=== PATIENT | male | born 1955 | race Caucasian/White ===

== ENCOUNTER 2016-09-09 17:05 | Inpatient (IN) | payer BC ==
[2016-09-09] MEDS ORDERED: Sodium Chloride 0.9% 10 ML Syringe FLUSH PRN (17:31)
[2016-09-09] MEDS ORDERED: Ondansetron 4 MG/2 ML SDV IVPUSH ONE (17:48)
[2016-09-09] MEDS ORDERED: Ondansetron 8 MG in Sodium Chloride 0.9% 50 ML IV ONE (17:58)
[2016-09-09 17:59] LABS: CHLORIDE,CL 98 mEq/L (98-106); SODIUM,NA 137 mEq/L (136-145)
[2016-09-09] MEDS ORDERED: Acetaminophen 325 MG Tab PO ONE (18:23)
--- NOTE | 2016-09-09 18:55 | EDM.PDOC ---
ED HPI GENERAL MEDICAL PROBLEM - General Chief Complaint: General Stated Complaint: nausea,vomiting,weaknes,fever Time Seen by Provider: 09/09/16 17:20 Source of Information: Reports: Patient History Limitations: Reports: No limitations - History of Present Illness INITIAL COMMENTS - FREE TEXT/NARRATIVE: my General medical History and physical: History of present illness: [Patient is brought to the emergency room by his . He has complained of weakness, dizziness, lightheadedness, nausea and vomiting since 7:00 this morning. He had one dose of Zofran at 11 AM which helped his nausea for a short time. His appetite is decreased and he began to feel warm to the touch while he was at home. His temperature was 103.2 upon presentation to the ER. He is currently undergoing chemotherapy for lung cancer with brain metastasis with Dr. Long at [facility]. His last treatment was 10 days ago. reports that he has had cough and cold symptoms for the past 10 days. He denies headache sore throat and earaches. He has no chest pain, shortness of breath, or difficulty breathing. No abdominal pain. Nausea and vomiting began today. Denies burning with urination, hematuria, urinary frequency and urgency. No change to bowels. Denies swelling to his feet or lower legs. Overall feels weak and denies falls and injury. No unilateral weakness.] Review of Systems: As per history of present illness and below otherwise all systems reviewed and negative. Past medical history: As per history of present illness and as reviewed below otherwise noncontributory. Surgical history: As per history of present illness and is reviewed below other rincon noncontributory. Social history: No reported history of drug or alcohol abuse. Family history: As per history of present illness and is reviewed below otherwise noncontributory. Physical exam: HEENT: Atraumatic, normocephalic. Oral mucous membranes are pink and moist. Wears glasses. neck supple, nontender, no lymphadenopathy. Lungs: Clear to auscultation, breath sounds equal bilaterally. No wheezing crackles or rales. Heart: S1-S2, regular rate and rhythm. negative for clicks, rubs, or JVD. Abdomen: Overweight, Soft, nondistended. No masses guarding or rebound. Mildly tender over the suprapubic area. No CVA tenderness. Pelvis: Stable, nontender. Genitourinary: Deferred. Rectal: Deferred. Extremities: Ambulatory without difficulty. No swelling or cyanosis to feet or lower legs. negative for cords or calf pain. Neurovascular unremarkable. Neuro: Awake, alert, oriented. Motor and sensory unremarkable throughout. Exam nonfocal. Movements of upper and lower extremities is symmetrical. Diagnostics: [CBC, CMP, UA, urine culture, blood cultures, CRP, lactic acid] Therapeutics: [Tylenol 650 mg by mouth, normal saline 500 miles per hour, Zofran 8mg IV, Levaquin 500 milligrams IV, ceftriaxone 1 g IV] Impression: [Urosepsis] Plan: [White blood cell count 19.5, BUN 11, creatinine 0.8, glucose 168, CRP 8.8, lactic acid 2.3. Urinalysis shows specific gravity 1.028, ketones 15, trace amount of blood, nitrate positive, greater than 100 white blood cells. Blood and urine cultures are pending. Vitals are reviewed in the chart. Contacted Dr. 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 and review this case with him. He is happy to accept the patient in transfer but states that unless the patient would like to be evaluated and treated in [place], treatment at [facility] is certainly reasonable. This is reviewed with patient and his . They would like to remain in [place] at this time for hospitalization. All their questions are answered and concerns are addressed. This note is to serve as hospital H&P. 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: Other medication(s) Lower Back Pain Score (Numeric/FACES): 5 - Related Data Allergies Allergy/AdvReac Type Severity Reaction Status Date / Time No Known Allergies Allergy Verified 09/09/16 17:13 Home Meds: Home Meds Simvastatin [Simvastatin] 40 mg PO DAILY 03/04/15 [History] metFORMIN [Glucophage] 500 mg PO BID 04/07/15 [History] Cholecalciferol (Vitamin D3) [Vitamin D3] 1,000 unit PO DAILY 06/10/16 [History] Ondansetron HCl [Zofran] 4 mg PO Q8H PRN 06/10/16 [History] Prochlorperazine [Compazine] 10 mg PO Q6H PRN 06/10/16 [History] Tamsulosin HCl [Flomax] 0.4 mg PO DAILY 06/10/16 [History] Aspirin [Halfprin] 81 mg PO DAILY 06/21/16 [History] Multivitamin [Multivitamins] 1 tab PO DAILY 06/21/16 [History] Turkey-3/DHA/Epa/Fish Oil [Fish Oil 1,000 mg Softgel] 2,000 unit PO DAILY [History] guaiFENesin [Mucinex] 600 mg PO BID 06/21/16 [History] Cranberry 500 mg PO DAILY 06/24/16 [History] Diphenoxylate HCl/Atropine [Lomotil] 1 tab PO Q6H PRN 06/24/16 [History] Famotidine [Pepcid] 20 mg PO DAILY 06/24/16 [History] Polyethylene Glycol 3350 [MiraLAX] 17 gm PO DAILY PRN 06/24/16 [History] Benzonatate [Tessalon Perles] 200 mg PO TID PRN 09/09/16 [History] Past Medical History Other HEENT History: wears glasses Cardiovascular History: Reports: High cholesterol, Hypertension Endocrine/Metabolic History: Reports: Diabetes, type II Oncologic (Cancer) History: Reports: Other (see below) Other Oncologic History: RECTAL - Past Surgical History Other HEENT Surgeries/Procedures: eye lid surgery Other GI Surgeries/Procedures: rectal cancer with polypectomy Social & Family History - Family History Family Medical History: Noncontributory - Tobacco Use Smoking Status *Q: Never Smoker Second Hand Smoke Exposure: No - Caffeine Use Caffeine Use: Reports: Coffee - Recreational Drug Use Recreational Drug Use: No ED ROS GENERAL - Review of Systems Review Of Systems: ROS reveals no pertinent complaints other than HPI. ED EXAM, GENERAL - Physical Exam Exam: See Below Course - Vital Signs Last Recorded V/S: Last Vital Signs Temp 97.8 F 09/10/16 12:00 Pulse 137 H 09/10/16 12:00 Resp 18 09/10/16 12:00 BP 113/77 09/10/16 07:44 Pulse Ox 95 09/10/16 12:00 - Orders/Labs/Meds Orders: Active Orders 24 hr Category Date Time Status CXR [Chest 2V] [CR] Stat Exams 09/09/16 17:44 Taken CULTURE BLOOD [BC] Stat Lab 09/09/16 17:35 Received CULTURE BLOOD [BC] Stat Lab 09/09/16 17:40 Received CULTURE URINE [RM] Stat Lab 09/09/16 17:45 Results Levofloxacin/Dextrose 5%-Water [Levaquin in D5W 500 MG/ Med 09/09/16 19:15 Active 100 ML] 500 mg Premix Bag 1 bag IV Q24H cefTRIAXone [Rocephin] Med 09/09/16 19:15 Active 1 gm IV Q24H Blood Culture x2 Reflex Set [OM.PC] Stat Oth 09/09/16 17:31 Ordered Saline Lock Insert [OM.PC] Stat Oth 09/09/16 17:30 Ordered Medication Orders Acetaminophen (Tylenol) 650 mg PO Q4H PRN PRN Reason: Pain (Mild 1-3)/fever Last Admin: 09/09/16 22:01 Dose: 650 mg Hydrocodone Bitart/Acetaminophen ([place] 325-5 Mg) 1 tab PO Q4H PRN PRN Reason: Pain (moderate 4-6) Ceftriaxone Sodium (Rocephin) 1 gm IV Q24H [facility] Last Admin: 09/09/16 19:13 Dose: 1 gm Enoxaparin Sodium (Lovenox) 40 mg SUBCUT Q24H [facility] Last Admin: 09/09/16 20:25 Dose: 40 mg Famotidine (Pepcid) 20 mg PO DAILY [facility] Last Admin: 09/10/16 07:31 Dose: 20 mg Admin: 09/09/16 20:23 Dose: 20 mg Levofloxacin/Dextrose 500 mg/ (Premix) 100 mls @ 100 mls/hr IV Q24H [facility] Last Admin: 09/09/16 19:17 Dose: 100 mls/hr Sodium Chloride (Normal Saline) 1,000 mls @ 125 mls/hr IV ASDIRECTED [facility] Last Admin: 09/10/16 05:59 Dose: 125 mls/hr Infusion: 09/09/16 22:01 Dose: 125 mls/hr Admin: 09/09/16 20:25 Dose: 125 mls/hr Ibuprofen (Motrin) 600 mg PO Q6H PRN PRN Reason: Fever Last Admin: 09/09/16 20:23 Dose: 600 mg Metformin HCl (Glucophage) 500 mg PO BID [facility] Last Admin: 09/10/16 07:30 Dose: 500 mg Admin: 09/09/16 20:23 Dose: 500 mg Ondansetron HCl (Zofran) 4 mg IV Q6H PRN PRN Reason: Nausea/Vomiting Tamsulosin HCl (Flomax) 0.4 mg PO DAILY NICOLA Last Admin: 09/10/16 07:29 Dose: 0.4 mg Admin: 09/09/16 20:23 Dose: 0.4 mg Zolpidem Tartrate (Ambien) 5 mg PO BEDTIME PRN PRN Reason: Sleep Labs: Laboratory Tests 09/09/16 09/09/16 09/09/16 Range/Units 17:35 17:35 17:40 WBC 19.5 H (5.0-10.0) 10^3/uL RBC 5.21 (4.50-6.00) 10^6/uL Hgb 14.9 (14.0-18.0) g/dL Hct 44.4 (40.0-54.0) % MCV 85.2 (82.0-94.0) fL MCH 28.6 (27.0-32.0) pg MCHC 33.6 (33.0-38.0) g/dL RDW Coeff of Maikel 15.5 H (11.0-15.0) % Plt Count 132 L (150-400) 10^3/uL Add Manual Diff Yes Neutrophils % (Manual) 79 (35-85) % Band Neutrophils % 7 H (0-5) % Lymphocytes % (Manual) 5 L (21-55) % Monocytes % (Manual) 9 (2-12) % Absolute Neutrophils 16.77 H (1.80-7.00) 10^3/uL Lymphocytes # (Manual) 0.98 L (1.00-4.80) 10^3/uL Monocytes # (Manual) 1.76 H (0.00-0.80) 10^3/uL Sodium 137 (136-145) mEq/L Potassium 4.0 (3.5-5.0) mEq/L Chloride 98 (98-106) mEq/L Carbon Dioxide 25 (21-32) mmol/L BUN 11 (7-18) mg/dL Creatinine 0.8 (0.7-1.3) mg/dL Est Cr Clr Drug Dosing 108.20 mL/min Estimated GFR (MDRD) > 60 (>=60) mL/min Glucose 168 H D (75-99) mg/dL Lactic Acid 2.3 H (0.4-2.0) mmol/L Calcium 8.7 (8.4-10.1) mg/dL Total Bilirubin 1.3 H (0.0-1.0) mg/dL AST 25 (15-37) U/L ALT 17 (12-78) U/L Alkaline Phosphatase 89 (46-116) U/L C-Reactive Protein (0.2-0.8) mg/dL Total Protein 7.3 (6.4-8.2) g/dL Albumin 3.6 (3.4-5.0) g/dL Urine Color (YELLOW) Urine Appearance (CLEAR) Urine pH (4.5-8.0) Ur Specific [place] (1.003-1.020) Urine Protein (NEGATIVE) mg/dL Urine Glucose (UA) (NEGATIVE) mg/dL Urine Ketones (NEGATIVE) mg/dL Urine Occult Blood (NEGATIVE) Urine Nitrite (NEGATIVE) Urine Bilirubin (NEGATIVE) Urine Urobilinogen (0.2-1.0) EU/dL Ur Leukocyte Esterase (NEGATIVE) Urine RBC (0-5) /HPF Urine WBC (0-5) /HPF Urine WBC Clumps (NOT SEEN) /HPF Ur Epithelial Cells (NOT SEEN) /HPF Urine Bacteria (NOT SEEN) /HPF Urine Mucus (NOT SEEN) /HPF 09/09/16 09/09/16 Range/Units 17:40 17:45 WBC (5.0-10.0) 10^3/uL RBC (4.50-6.00) 10^6/uL Hgb (14.0-18.0) g/dL Hct (40.0-54.0) % MCV (82.0-94.0) fL MCH (27.0-32.0) pg MCHC (33.0-38.0) g/dL RDW Coeff of Maikel (11.0-15.0) % Plt Count (150-400) 10^3/uL Add Manual Diff Neutrophils % (Manual) (35-85) % Band Neutrophils % (0-5) % Lymphocytes % (Manual) (21-55) % Monocytes % (Manual) (2-12) % Absolute Neutrophils (1.80-7.00) 10^3/uL Lymphocytes # (Manual) (1.00-4.80) 10^3/uL Monocytes # (Manual) (0.00-0.80) 10^3/uL Sodium (136-145) mEq/L Potassium (3.5-5.0) mEq/L Chloride (98-106) mEq/L Carbon Dioxide (21-32) mmol/L BUN (7-18) mg/dL Creatinine (0.7-1.3) mg/dL Est Cr Clr Drug Dosing mL/min Estimated GFR (MDRD) (>=60) mL/min Glucose (75-99) mg/dL Lactic Acid (0.4-2.0) mmol/L Calcium (8.4-10.1) mg/dL Total Bilirubin (0.0-1.0) mg/dL AST (15-37) U/L ALT (12-78) U/L Alkaline Phosphatase (46-116) U/L C-Reactive Protein 8.8 H (0.2-0.8) mg/dL Total Protein (6.4-8.2) g/dL Albumin (3.4-5.0) g/dL Urine Color Yellow (YELLOW) Urine Appearance Slightly cloudy (CLEAR) Urine pH 6.0 (4.5-8.0) Ur Specific [place] 1.028 H (1.003-1.020) Urine Protein >=300 H (NEGATIVE) mg/dL Urine Glucose (UA) Negative (NEGATIVE) mg/dL Urine Ketones 15 H (NEGATIVE) mg/dL Urine Occult Blood Trace-intact H (NEGATIVE) Urine Nitrite Positive H (NEGATIVE) Urine Bilirubin Small H (NEGATIVE) Urine Urobilinogen 2.0 H (0.2-1.0) EU/dL Ur Leukocyte Esterase Small H (NEGATIVE) Urine RBC Not seen (0-5) /HPF Urine WBC >100 H (0-5) /HPF Urine WBC Clumps Few H (NOT SEEN) /HPF Ur Epithelial Cells Few H (NOT SEEN) /HPF Urine Bacteria Many H (NOT SEEN) /HPF Urine Mucus Few H (NOT SEEN) /HPF Meds: Medications Generic Name Dose Route Start Last Admin Trade Name Freq PRN Reason Stop Dose Admin Acetaminophen 650 mg 09/09/16 19:25 09/09/16 22:01 Tylenol PO 650 mg Q4H PRN Administration Pain (Mild 1-3)/fever Hydrocodone Bitart/Acetaminophen 1 tab 09/09/16 19:25 [place] 325-5 Mg PO Q4H PRN Pain (moderate 4-6) Ceftriaxone Sodium 1 gm 09/09/16 19:15 09/09/16 19:13 Rocephin IV 1 gm Q24H NICOLA Administration Enoxaparin Sodium 40 mg 09/09/16 19:30 09/09/16 20:25 Lovenox SUBCUT 40 mg Q24H NICOLA Administration Famotidine 20 mg 09/09/16 19:30 09/10/16 07:31 Pepcid PO 20 mg DAILY NICOLA Administration Levofloxacin/Dextrose 500 mg/ 100 mls @ 100 mls/hr 09/09/16 19:15 09/09/16 19 :17 Premix IV 100 mls/hr Q24H NICOLA Administration Sodium Chloride 1,000 mls @ 125 mls/hr 09/09/16 20:00 09/10/16 05:59 Normal Saline IV 125 mls/hr ASDIRECTED NICOLA Administration Ibuprofen 600 mg 09/09/16 19:51 09/09/16 20:23 Motrin PO 600 mg Q6H PRN Administration Fever Metformin HCl 500 mg 09/09/16 20:00 09/10/16 07:30 Glucophage PO 500 mg BID NICOLA Administration Ondansetron HCl 4 mg 09/09/16 19:25 Zofran IV Q6H PRN Nausea/Vomiting Tamsulosin HCl 0.4 mg 09/09/16 19:30 09/10/16 07:29 Flomax PO 0.4 mg DAILY NICOLA Administration Zolpidem Tartrate 5 mg 09/09/16 19:25 Ambien PO BEDTIME PRN Sleep Discontinued Medications Generic Name Dose Route Start Last Admin Trade Name Freq PRN Reason Stop Dose Admin Acetaminophen 650 mg 09/09/16 18:23 09/09/16 18:27 Tylenol PO 09/09/16 18:24 650 mg NOW ONE Administration Ondansetron HCl 8 mg/ Sodium 54 mls @ 100 mls/hr 09/09/16 17:58 09/09/16 18: 17 Chloride IV 09/09/16 18:30 100 mls/hr ASDIRECTED ONE Administration Sodium Chloride 1,000 mls @ 500 mls/hr 09/09/16 19:00 09/09/16 19:00 Normal Saline IV 09/09/16 21:00 500 mls/hr STAT NICOLA Administration Sodium Chloride 10 ml 09/09/16 17:31 Saline Flush FLUSH ASDIRECTED PRN Keep Vein Open Departure - Departure Time of Disposition: 19:20 Disposition: Admitted As Inpatient 65 Condition: good Clinical Impression: UTI (urinary tract infection) Qualifiers: Urinary tract infection type: site unspecified Hematuria presence: without hematuria Qualified Code(s): N39.0 - Urinary tract infection, site not specified - My Orders Last 24 Hours: My Active Orders 09/09/16 17:30 Saline Lock Insert [OM.PC] Stat 09/09/16 17:31 Blood Culture x2 Reflex Set [OM.PC] Stat 09/09/16 17:35 CULTURE BLOOD [BC] Stat 09/09/16 17:40 CULTURE BLOOD [BC] Stat 09/09/16 17:44 CXR [Chest 2V] [CR] Stat 09/09/16 17:45 CULTURE URINE [RM] Stat 09/09/16 19:15 Levofloxacin/Dextrose 5%-Water [Levaquin in D5W 500 MG/100 ML] 500 mg Premix Bag 1 bag IV Q24H cefTRIAXone [Rocephin] 1 gm IV Q24H - Assessment/Plan Last 24 Hours: My Active Orders 09/09/16 17:30 Saline Lock Insert [OM.PC] Stat 09/09/16 17:31 Blood Culture x2 Reflex Set [OM.PC] Stat 09/09/16 17:35 CULTURE BLOOD [BC] Stat 09/09/16 17:40 CULTURE BLOOD [BC] Stat 09/09/16 17:44 CXR [Chest 2V] [CR] Stat 09/09/16 17:45 CULTURE URINE [RM] Stat 09/09/16 19:15 Levofloxacin/Dextrose 5%-Water [Levaquin in D5W 500 MG/100 ML] 500 mg Premix Bag 1 bag IV Q24H cefTRIAXone [Rocephin] 1 gm IV Q24H
[2016-09-09] MEDS ORDERED: Sodium Chloride 0.9% 1,000 ML IV SCH (19:00)
[2016-09-09] MEDS: cefTRIAXone 1 GM Vial IV SCH (19:13)
[2016-09-09] MEDS: Levofloxacin/Dextrose 5%-Water 500 MG in Premix Bag 1 BAG IV SCH (19:17)
[2016-09-09] MEDS ORDERED: Ondansetron 4 MG/2 ML SDV IV PRN (19:25)
[2016-09-09] MEDS ORDERED: Acetaminophen/HYDROcodone 325-5 MG Tab PO PRN (19:25)
[2016-09-09] MEDS ORDERED: Zolpidem 5 MG Tab PO PRN (19:25)
[2016-09-09] MEDS ORDERED: Acetaminophen 325 MG Tab PO PRN (19:25)
[2016-09-09] MEDS ORDERED: Ibuprofen 200 MG Tab PO PRN (19:51)
[2016-09-09] MEDS: metFORMIN 500 MG Tab PO SCH (20:23)
[2016-09-09] MEDS: Tamsulosin 0.4 MG Cap.ER PO SCH (20:23)
[2016-09-09] MEDS: Famotidine 20 MG Tab PO SCH (20:23)
[2016-09-09] MEDS: Enoxaparin 40 MG/0.4 ML Syringe SUBCUT SCH (20:25)
[2016-09-09] MEDS: Sodium Chloride 0.9% 1,000 ML IV SCH (20:25)
[2016-09-10] MEDS: Sodium Chloride 0.9% 1,000 ML IV SCH ×3 (05:59→20:01)
[2016-09-10] MEDS: Tamsulosin 0.4 MG Cap.ER PO SCH (07:29)
[2016-09-10] MEDS: metFORMIN 500 MG Tab PO SCH ×2 (07:30→20:00)
[2016-09-10] MEDS: Famotidine 20 MG Tab PO SCH (07:31)
[2016-09-10 07:55] LABS: CHLORIDE,CL 102 mEq/L (98-106); SODIUM,NA 139 mEq/L (136-145)
--- NOTE | 2016-09-10 17:33 | PCM.PN ---
- General Info Date of Service: 09/10/16 Admission Dx/Problem (Free Text): urosepsis Subjective Update: Patient was admitted through the emergency room last night for urosepsis. Nursing staff have no new complaints or concerns for patient. Patient feels remarkably better than he did 24 hours ago. He has remained afebrile since about 11 PM last night. His appetite has been good and he is urinating well. His urine still looks concentrated per his report. Patient has no concerns. Functional Status: Reports: tolerating diet, urinating - Review of Systems General: Denies: Fever, Fatigue, Malaise, Chills Pulmonary: Reports: no symptoms Cardiovascular: Reports: No Symptoms Gastrointestinal: Reports: No symptoms Genitourinary: Reports: frequency. Denies: dysuria, burning, pain, urgency, hematuria, flank pain Musculoskeletal: Reports: no symptoms Skin: Reports: no symptoms Neurological: Reports: No Symptoms Psychiatric: Reports: no symptoms - Patient Data Vitals - most recent: Last Vital Signs Temp 98 F 09/10/16 16:00 Pulse 79 09/10/16 16:00 Resp 20 09/10/16 16:00 BP 137/89 09/10/16 16:00 Pulse Ox 94 L 09/10/16 16:00 Weight - most recent: 265 lb 4.8 oz I&O - last 24 hours: Intake & Output 09/10/16 09/10/16 09/10/16 06:59 14:59 22:59 Intake Total 1320 Balance 1320 Lab Results last 24 hrs: Laboratory Results - last 24 hr 09/10/16 09/10/16 09/10/16 Range/Units 07:15 07:15 07:15 WBC 17.6 H (5.0-10.0) 10^3/uL RBC 4.52 (4.50-6.00) 10^6/uL Hgb 13.1 L (14.0-18.0) g/dL Hct 39.3 L (40.0-54.0) % MCV 86.9 (82.0-94.0) fL MCH 29.0 (27.0-32.0) pg MCHC 33.3 (33.0-38.0) g/dL RDW Coeff of Maikel 15.5 H (11.0-15.0) % Plt Count 116 L (150-400) 10^3/uL MPV 9.1 fL Sodium 139 (136-145) mEq/L Potassium 3.8 (3.5-5.0) mEq/L Chloride 102 (98-106) mEq/L Carbon Dioxide 27 (21-32) mmol/L BUN 14 (7-18) mg/dL Creatinine 0.7 (0.7-1.3) mg/dL Est Cr Clr Drug Dosing 123.65 mL/min Estimated GFR (MDRD) > 60 (>=60) mL/min Glucose 101 H D (75-99) mg/dL POC Glucose (75-105) mg/dl Lactic Acid 1.2 (0.4-2.0) mmol/L Calcium 8.2 L (8.4-10.1) mg/dL C-Reactive Protein 19.8 H (0.2-0.8) mg/dL 09/10/16 Range/Units 07:23 WBC (5.0-10.0) 10^3/uL RBC (4.50-6.00) 10^6/uL Hgb (14.0-18.0) g/dL Hct (40.0-54.0) % MCV (82.0-94.0) fL MCH (27.0-32.0) pg MCHC (33.0-38.0) g/dL RDW Coeff of Maikel (11.0-15.0) % Plt Count (150-400) 10^3/uL MPV fL Sodium (136-145) mEq/L Potassium (3.5-5.0) mEq/L Chloride (98-106) mEq/L Carbon Dioxide (21-32) mmol/L BUN (7-18) mg/dL Creatinine (0.7-1.3) mg/dL Est Cr Clr Drug Dosing mL/min Estimated GFR (MDRD) (>=60) mL/min Glucose (75-99) mg/dL POC Glucose 100 (75-105) mg/dl Lactic Acid (0.4-2.0) mmol/L Calcium (8.4-10.1) mg/dL C-Reactive Protein (0.2-0.8) mg/dL Med Orders - Current: Current Medications Acetaminophen (Tylenol) 650 mg PO Q4H PRN PRN Reason: Pain (Mild 1-3)/fever Last Admin: 09/09/16 22:01 Dose: 650 mg Hydrocodone Bitart/Acetaminophen ([place] 325-5 Mg) 1 tab PO Q4H PRN PRN Reason: Pain (moderate 4-6) Ceftriaxone Sodium (Rocephin) 1 gm IV Q24H [facility] Last Admin: 09/09/16 19:13 Dose: 1 gm Enoxaparin Sodium (Lovenox) 40 mg SUBCUT Q24H [facility] Last Admin: 09/09/16 20:25 Dose: 40 mg Famotidine (Pepcid) 20 mg PO DAILY [facility] Last Admin: 09/10/16 07:31 Dose: 20 mg Levofloxacin/Dextrose 500 mg/ (Premix) 100 mls @ 100 mls/hr IV Q24H [facility] Last Admin: 09/09/16 19:17 Dose: 100 mls/hr Sodium Chloride (Normal Saline) 1,000 mls @ 125 mls/hr IV ASDIRECTED [facility] Last Admin: 09/10/16 14:22 Dose: 125 mls/hr Ibuprofen (Motrin) 600 mg PO Q6H PRN PRN Reason: Fever Last Admin: 09/09/16 20:23 Dose: 600 mg Metformin HCl (Glucophage) 500 mg PO BID [facility] Last Admin: 09/10/16 07:30 Dose: 500 mg Ondansetron HCl (Zofran) 4 mg IV Q6H PRN PRN Reason: Nausea/Vomiting Tamsulosin HCl (Flomax) 0.4 mg PO DAILY [facility] Last Admin: 09/10/16 07:29 Dose: 0.4 mg Zolpidem Tartrate (Ambien) 5 mg PO BEDTIME PRN PRN Reason: Sleep Discontinued Medications Acetaminophen (Tylenol) 650 mg PO NOW ONE Stop: 09/09/16 18:24 Last Admin: 09/09/16 18:27 Dose: 650 mg Ondansetron HCl 8 mg/ Sodium (Chloride) 54 mls @ 100 mls/hr IV ASDIRECTED ONE Stop: 09/09/16 18:30 Last Admin: 09/09/16 18:17 Dose: 100 mls/hr Sodium Chloride (Normal Saline) 1,000 mls @ 500 mls/hr IV STAT [facility] Stop: 09/09/16 21:00 Last Admin: 09/09/16 19:00 Dose: 500 mls/hr Sodium Chloride (Saline Flush) 10 ml FLUSH ASDIRECTED PRN PRN Reason: Keep Vein Open - Exam General: alert, cooperative Lungs: Clear to auscultation, Normal respiratory effort Cardiovascular: Regular Rate, Regular Rhythm Abdomen: soft, no tenderness, no distension Extremities: no edema Neurological: no new focal deficit Psy/Mental Status: alert, normal affect, normal mood - Problem List Review Problem List Initiated/Reviewed/Updated: Yes - My Orders Last 24 Hours: My Active Orders 09/09/16 19:25 Height and Weight [RC] 0600 Up With Assistance [RC] .PRN Acetaminophen [Tylenol] 650 mg PO Q4H PRN Acetaminophen/HYDROcodone [[place] 325-5 MG] 1 tab PO Q4H PRN Ondansetron [Zofran] 4 mg IV Q6H PRN Zolpidem [Ambien] 5 mg PO BEDTIME PRN Resuscitation Status Routine 09/09/16 19:29 Patient Status [ADT] Routine Oxygen Therapy [RC] .PRN Vital Signs [RC] 0000,0400,0800,1200,1600,2000 09/09/16 19:30 Enoxaparin [Lovenox] 40 mg SUBCUT Q24H Famotidine [Pepcid] 20 mg PO DAILY Tamsulosin [Flomax] 0.4 mg PO DAILY 09/09/16 19:51 Ibuprofen [Motrin] 600 mg PO Q6H PRN 09/09/16 20:00 Sodium Chloride 0.9% [Normal Saline] 1,000 ml IV ASDIRECTED metFORMIN [Glucophage] 500 mg PO BID 09/09/16 20:58 ADRIANA Hose [Antiembolic Hose] [OM.PC] Routine 09/09/16 20:59 Antiembolic Devices [RC] 1000,2200 09/10/16 07:30 Blood Glucose Check, Bedside [RC] 0730,1730 09/11/16 06:00 CBC W/O DIFF,HEMOGRAM [HEME] DAILY 09/11/16 19:34 LACTIC ACID [CHEM] DAILY - Assessment Assessment:: Urosepsis - Plan Plan:: Patient's white blood cell count is down from 19.5 to 17.6. Lactic acid is improved from 2.3 to 1.2. His CRP went up from 8.8 to 19.8. Other labs are largely unremarkable. Will continue current treatment regimen. Dr. gillette is to follow with patient tomorrow morning on hospital rounds.
[2016-09-10] MEDS: cefTRIAXone 1 GM Vial IV SCH (18:36)
[2016-09-10] MEDS: Levofloxacin/Dextrose 5%-Water 500 MG in Premix Bag 1 BAG IV SCH (18:41)
[2016-09-10] MEDS: Enoxaparin 40 MG/0.4 ML Syringe SUBCUT SCH (20:00)
[2016-09-11] MEDS: metFORMIN 500 MG Tab PO SCH ×2 (07:16→17:38)
[2016-09-11] MEDS: Tamsulosin 0.4 MG Cap.ER PO SCH (07:16)
[2016-09-11] MEDS: Famotidine 20 MG Tab PO SCH (07:16)
[2016-09-11] MEDS: Sodium Chloride 0.9% 1,000 ML IV SCH (07:17)
[2016-09-11] MEDS ORDERED: Levofloxacin/Dextrose 5%-Water 500 MG in Premix Bag 1 BAG IV SCH (20:00)
[2016-09-11] MEDS ORDERED: Enoxaparin 40 MG/0.4 ML Syringe SUBCUT SCH (20:00)
[2016-09-11] MEDS ORDERED: cefTRIAXone 1 GM Vial IV SCH (20:00)
--- NOTE | 2016-09-12 07:04 | PN ---
DATE: 09/11/2016 S: Mr. Esquivel was admitted with potential urosepsis. Blood cultures negative. Urine positive. Still awaiting on sensitivities. He does have gram-negative rods. For the most part, he has improved significantly. He has not spiked a temp over the 24 hours. His blood pressures are fine. He is holding his sats well. He is having good urine output. O: GENERAL: Shows him to be pleasant, alert, and cooperative. He appears in no distress. HEENT: Benign. NECK: Veins flat. LUNGS: Clear without atelectasis. CARDIAC: Tones are regular. ABDOMEN: Nontender. He has no flank pain to palpation. No peripheral edema seen. ASSESSMENT: ACUTE URINARY TRACT INFECTION. P: We will stop his fluids, get him up and ambulating. Hopefully, he will be home tomorrow on outpatient oral medications. YARY/JOSEPH /[id number]
[2016-09-12] MEDS: Tamsulosin 0.4 MG Cap.ER PO SCH (07:44)
[2016-09-12] MEDS: metFORMIN 500 MG Tab PO SCH (07:45)
[2016-09-12] MEDS: Famotidine 20 MG Tab PO SCH (07:45)
[2016-09-12 07:49] VITALS: BP 159/96
[2016-09-12] MEDS ORDERED: Polyethylene Glycol 3350 Powder 17 GM Packet PO ONE (10:35)
--- NOTE | 2016-09-13 08:46 | DISCH ---
ADMISSION DIAGNOSIS: Acute urinary tract infection with sepsis. DISCHARGE DIAGNOSIS: 1. ACUTE URINARY TRACT INFECTION. 2. HISTORY OF PRIMARY BRAIN MALIGNANCY. 3. TYPE 2 DIABETES. HISTORY: The patient presented with weakness, fevers, chills, and urinary complaints. On admit, he was found to have elevated white count of 19,000 with a CRP of 8.8. A urinalysis showed him to be dehydrated with positive signs of infection. Urine culture grew out ultimately E. coli. He was admitted for acute UTI with possible sepsis. HOSPITAL COURSE: The patient did have blood cultures drawn on admission. These were negative. He was started on IV antibiotics in the form of both Rocephin and Levaquin. Ultimately, the Rocephin was discontinued and the patient was continued on Levaquin. He has had a nice response. He has not had a temp over a day now. His vital signs have been stable. He is saturating well, voiding well and not having any complaints. Susceptibilities are still pending to the Levaquin, but suspect susceptible and he will go home on an outpatient course of 500 daily for another week. He is due to have chemo again in 2 days. I will call his oncologist and see if we can prolong that for at least another week and anticipate any further issues in that regard. No other changes at this time. He will have 2 week follow up in clinic for recheck. COMPLICATIONS: During his stay none. CONSULTATIONS: None. DISPOSITION: Discharged home. ELDA /[id number]
== END 2016-09-12 11:20 | disposition home or self-care (01) | DRG 720 ==
LOC: CC.ED 17:05 → CC.MS 19:12 → UNDOADMIN 19:12 → CC.MS 19:29
PROVIDERS: ADMIT Nurse Practitioner Family; ATTEND Family Medicine
DX: A41.9 Sepsis, unspecified organism (principal); N39.0 Urinary tract infection, site not specified; E11.9 Type 2 diabetes mellitus without complications; B96.20 Unspecified Escherichia coli [E. coli] as the cause of diseases classified elsewhere; I10 Essential (primary) hypertension; E78.5 Hyperlipidemia, unspecified; Z79.84 Long term (current) use of oral hypoglycemic drugs; R06.02 Shortness of breath
CPT/HCPCS: 36415; 36591; 71020; 80048; 80053; 81001; 82570; 82962; 83605; 84156; 85025; 85027; 86140; 87040; 87086; 87088; 87186; 96365; 96375; 99285; A9270-GY; J0696; J1642; J1650; J1956; J2405; J7030; J7050

== ENCOUNTER → 2018-02-01 | Day surgery (SDC) | payer BC ==
[~2018-02-01] MED LIST: Lactated Ringers 1,000 ML IV SCH; Propofol 200 MG/20 ML SDV IV ONE
[2018-02-01 11:00] VITALS: BP 133/82
--- NOTE | 2018-02-01 12:38 | OR ---
DATE OF OPERATION: 02/01/2018 PREOPERATIVE DIAGNOSIS: 1. ANEMIA. 2. HISTORY OF RECTAL CA. POSTOPERATIVE DIAGNOSIS: 1. ANEMIA. 2. HISTORY OF RECTAL CA. SURGEON: Alexei Darby MD PROCEDURE: FULL-LENGTH COLONOSCOPY WITH BIOPSIES X2. 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 COMPLICATIONS: None. SPECIMEN: Rectal biopsy x2. FINDINGS: 1. Full-length colonoscopy. 2. Moderate sigmoid diverticulosis. 3. Focal area angiodysplasia distal transverse colon. 4. Distal proctitis. RECOMMENDATIONS: Medical followup. The patient if has heme positive stool, would be a candidate for EGD. INDICATIONS: The patient has a history of metastatic colon cancer. He has been having issues with iron deficiency anemia and was sent for colonoscopy. DESCRIPTION OF PROCEDURE: The patient was prepped and draped, placed in the left lateral decubitus position. A lubricated Olympus colonoscope was inserted and easily advanced to the cecum and deep in the cecal pouch, visualized the appendiceal orifice. The bowel prep was adequate. There was lot of liquid stool. Most of these areas could be suctioned easily enough though. Upon withdrawal throughout the right and transverse colon, no gross abnormalities were seen. In the most distal portion of transverse colon near the splenic flexure, the patient has small focal area that looked like AVM, not actively bleeding. The descending colon was benign. Throughout the sigmoid colon, the patient has moderate scattered diverticular disease without any acute inflammatory change. I did not find any signs of polyps, mass, ulceration, or bleeding sites. No new or other vascular abnormalities or signs of active colitis in the sigmoid or rectosigmoid area. The rectal vault appeared benign. He has a very shallow and hard to retroflex, but at the distal vault in the perianal area, the patient has some active proctitis. Two biopsies of that area were taken. Throughout the whole colon, I could find no signs of any malignancy recurrence. Air was suctioned. Scope was removed without complication. YARY/JOSEPH /[id number]
== END ==
LOC: CC.SDS 08:02
PROVIDERS: ATTEND Family Medicine
DX: D50.9 Iron deficiency anemia, unspecified (principal); K57.30 Diverticulosis of large intestine without perforation or abscess without bleeding; K63.89 Other specified diseases of intestine; K62.89 Other specified diseases of anus and rectum; Z85.048 Personal history of other malignant neoplasm of rectum, rectosigmoid junction, and anus; E78.5 Hyperlipidemia, unspecified; I10 Essential (primary) hypertension; E11.9 Type 2 diabetes mellitus without complications; Z79.82 Long term (current) use of aspirin; Z79.84 Long term (current) use of oral hypoglycemic drugs; Z79.899 Other long term (current) drug therapy
CPT/HCPCS: 82962; J2704; J7120

== ENCOUNTER → 2018-03-01 | Day surgery (SDC) | payer BC ==
[2018-03-01 07:32] VITALS: BP 137/78
--- NOTE | 2018-03-01 10:38 | OR ---
DATE OF OPERATION: 03/01/2018 PREOPERATIVE DIAGNOSIS: IRON-DEFICIENCY ANEMIA, HEME-POSITIVE STOOLS. POSTOPERATIVE DIAGNOSIS: IRON-DEFICIENCY ANEMIA, HEME-POSITIVE STOOLS. SURGEON: Alexei Darby MD PROCEDURE: EGD WITH BIOPSY X3, GOPI. 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 COMPLICATIONS: None. SPECIMEN: Antral biopsy x3, GOPI. FINDINGS: 1. Full-length EGD. 2. Large gastric ulcer with gastritis, antrum, not actively bleeding. RECOMMENDATIONS: Appropriate medical care. INDICATIONS: The patient has documented history of colon cancer with mets. He has been having iron deficiency anemia and heme positive stool. Colonoscopy was negative for bleeding sites. EGD was recommended. DESCRIPTION OF PROCEDURE: The patient was prepped and draped, placed in the left lateral decubitus position. A lubricated Olympus gastroscope was inserted over a bit and advanced to cricopharyngeus area and easily intubated in the esophagus. Esophageal lining was benign in its entire course. No mucosal abnormalities were seen. The Z-line was crisp and sharp at 40 cm. The patient does have some prominent vasculature in the distal esophagus. The scope was advanced into the stomach through the pylorus and into the second portion of the duodenum. This and the duodenal bulb were benign. The scope was brought back into the stomach and retroflexed. No lesions were seen in the upper fundus or cardia portion of the stomach upon straightening. Thorough evaluation of rest of the fundus and antrum revealed what looked like healing ulcer in the mid to distal portion of the antrum. There is a lot of inflammatory gastritis with what appears to be couple ulcerative bases, which are without any adherent clot or signs of bleeding. Three separate biopsies of solar manufacturer's representative areas were taken along with a GOPI test. Air was then suctioned from the stomach. The scope was removed without complication. YARY/JOSEPH /[id number]
== END ==
LOC: CC.SDS 06:11
PROVIDERS: ATTEND Family Medicine
DX: D50.9 Iron deficiency anemia, unspecified (principal); K25.4 Chronic or unspecified gastric ulcer with hemorrhage; Z79.82 Long term (current) use of aspirin; Z79.84 Long term (current) use of oral hypoglycemic drugs; Z79.899 Other long term (current) drug therapy; Z85.038 Personal history of other malignant neoplasm of large intestine; Z85.841 Personal history of malignant neoplasm of brain
CPT/HCPCS: 87081; J2704; J7120

== ENCOUNTER 2018-10-14 03:59 | Emergency (ER) | payer BC ==
--- NOTE | 2018-10-14 04:14 | EDM.PDOC ---
ED HPI GENERAL MEDICAL PROBLEM - General Chief Complaint: General Stated Complaint: confusion Time Seen by Provider: 10/14/18 04:00 Source of Information: Reports: Patient History Limitations: Reports: No Limitations - History of Present Illness INITIAL COMMENTS - FREE TEXT/NARRATIVE: Izaiah is a 63 year old male who presents to the ED via [facility] with c/o episode of confusion. reports around 0300 he woke up and let out a scream that woke her. She reports his eyes looked glazed over and he wouldn't answer her. She reports this lasted a few minutes and then he was confused and verbal. reports he was "foaming from his nose." Upon EMS arrival, patient was verbal to them and confused. After a short time, patient became alert and oriented. Upon arrival to ED, patient is alert and oriented with no neurologic deficit. He does not recall earlier events. Does appear to be post ictal, c/o frontal headache and feels tired. He denies any other complaints upon arrival to ED. He does have history of brain and lung cancer and is currently undergoing chemo and radiation for this. Has had previous brain surgeries. He is also a type II DM. Blood glucose on arrival is 150s. Onset: Today, Sudden Onset Date: 10/14/18 Onset Time: 03:00 Duration: Resolved Prior to Arrival Improves with: Reports: None Worsens with: Reports: None Associated Symptoms: Reports: Confusion. Denies: Chest Pain, Cough, cough w sputum, Diaphoresis, Fever/Chills, Headaches, Loss of Appetite, Malaise, Nausea/ Vomiting, Rash, Seizure, Shortness of Breath, Syncope, Weakness - Related Data Allergies Allergy/AdvReac Type Severity Reaction Status Date / Time No Known Allergies Allergy Verified 10/14/18 04:11 Home Meds: Home Meds Simvastatin 40 mg PO BEDTIME 03/04/15 [History] metFORMIN [Glucophage] 500 mg PO BID 04/07/15 [History] Cholecalciferol (Vitamin D3) [Vitamin D3] 1,000 unit PO DAILY 06/10/16 [History] Ondansetron HCl [Zofran] 4 mg PO Q8H PRN 06/10/16 [History] Tamsulosin HCl [Flomax] 0.8 mg PO DAILY 06/10/16 [History] Multivitamin [Multivitamins] 1 tab PO DAILY 06/21/16 [History] [place]-3/DHA/Epa/Fish Oil [Fish Oil 1,000 mg Softgel] 1,000 mg PO DAILY 06/21/16 [History] Cranberry 500 mg PO DAILY 06/24/16 [History] Diphenoxylate HCl/Atropine [Lomotil] 1 tab PO Q6H PRN 06/24/16 [History] Dutasteride [Avodart] 0.5 mg PO DAILY 01/30/18 [History] Ferrous Sulfate [Ferosul] 650 mg PO DAILY 02/01/18 [History] Omeprazole Magnesium [Prilosec Otc] 20 mg PO DAILY 10/14/18 [History] Ubidecarenone [Co Q-10] 200 mg PO DAILY 10/14/18 [History] levETIRAcetam [Keppra] 750 mg PO BID #60 tablet 10/14/18 [Rx] Past Medical History Other HEENT History: wears glasses Cardiovascular History: Reports: High Cholesterol, Hypertension Endocrine/Metabolic History: Reports: Diabetes, Type II Oncologic (Cancer) History: Reports: Other (See Below) Other Oncologic History: RECTAL - Past Surgical History Other HEENT Surgeries/Procedures: eye lid surgery Other GI Surgeries/Procedures: rectal cancer with polypectomy Social & Family History - Family History Family Medical History: Noncontributory - Caffeine Use Caffeine Use: Reports: Coffee ED ROS GENERAL - Review of Systems Review Of Systems: ROS reveals no pertinent complaints other than HPI. ED EXAM, GENERAL - Physical Exam Exam: See Below Exam Limited By: No Limitations General Appearance: Alert, WD/WN, No Apparent Distress Eye Exam: Bilateral Eye: EOMI, Normal Fundi, Normal Inspection, PERRL Ears: Normal External Exam, Normal Canal, Hearing Grossly Normal, Normal TMs Nose: Normal Inspection, Normal Mucosa, No Blood Throat/Mouth: Normal Inspection, Normal Lips, Normal Teeth, Normal Gums, Normal Oropharynx, Normal Voice, No Airway Compromise Head: Atraumatic, Normocephalic Neck: Normal Inspection, Supple, Non-Tender, Full Range of Motion Respiratory/Chest: No Respiratory Distress, Lungs Clear, Normal Breath Sounds, No Accessory Muscle Use, Chest Non-Tender, Wheezing Cardiovascular: Normal Peripheral Pulses, Regular Rate, Rhythm, No Edema, No Gallop, No JVD, No Murmur, No Rub GI/Abdominal: Normal Bowel Sounds, Soft, Non-Tender, No Organomegaly, No Distention, No Abnormal Bruit, No Mass Back Exam: Normal Inspection, Full Range of Motion, NT Extremities: Normal Inspection, Normal Range of Motion, Non-Tender, Normal Capillary Refill, No Pedal Edema Neurological: Alert, Oriented, CN II-XII Intact, Normal Cognition, Normal Gait, Normal Reflexes, No Motor/Sensory Deficits Psychiatric: Normal Affect, Normal Mood Skin Exam: Warm, Dry, Intact, Normal Color, No Rash Lymphatic: No Adenopathy Course - Vital Signs Last Recorded V/S: Last Vital Signs Temp 99 F 10/14/18 05:34 Pulse 93 10/14/18 05:34 Resp 16 10/14/18 05:34 BP 142/89 H 10/14/18 05:34 Pulse Ox 96 10/14/18 05:34 - Orders/Labs/Meds Orders: Active Orders 24 hr Category Date Time Status Head wo Cont [CT] Stat Exams 10/14/18 04:08 Taken Labs: Laboratory Tests 10/14/18 10/14/18 10/14/18 Range/Units 04:05 04:05 04:05 WBC 6.1 (5.0-10.0) 10^3/uL RBC 5.13 (4.50-6.00) 10^6/uL Hgb 15.8 (14.0-18.0) g/dL Hct 45.6 (40.0-54.0) % MCV 88.9 (82.0-94.0) fL MCH 30.8 (27.0-32.0) pg MCHC 34.6 (33.0-38.0) g/dL RDW Coeff of Maikel 13.8 (11.0-15.0) % Plt Count 73 L (150-400) 10^3/uL Neut % (Auto) 73.6 (35-85) % Lymph % (Auto) 14.5 (10-55) % Winn % (Auto) 8.6 (0-16) % Eos % (Auto) 3.0 (0-5) % Baso % (Auto) 0.3 (0-3) % Neut # (Auto) 4.45 (1.80-7.00) 10^3/uL Lymph # (Auto) 0.88 L (1.00-4.80) 10^3/uL Winn # (Auto) 0.52 (0.00-0.80) 10^3/uL Eos # (Auto) 0.18 (0.00-0.45) 10^3/uL Baso # (Auto) 0.02 10^3/uL PT 10.7 (9.7-12.3) SEC INR 1.04 (0.92-1.18) APTT 25.1 (23.2-32.3) SEC Sodium 139 (136-145) mEq/L Potassium 3.9 (3.5-5.0) mEq/L Chloride 101 (98-106) mEq/L Carbon Dioxide 26 (21-32) mmol/L BUN 15 (7-18) mg/dL Creatinine 1.0 (0.7-1.3) mg/dL Est Cr Clr Drug Dosing 84.34 mL/min Estimated GFR (MDRD) > 60 (>=60) mL/min Glucose 154 H D (75-99) mg/dL Calcium 8.9 (8.4-10.1) mg/dL Total Bilirubin 0.8 (0.0-1.0) mg/dL AST 33 (15-37) U/L ALT 31 (12-78) U/L Alkaline Phosphatase 107 (46-116) U/L Lactate Dehydrogenase 162 (100-190) U/L Creatine Kinase 121 (35-232) U/L Troponin I 0.027 (0.00-0.06) ng/mL Total Protein 7.1 (6.4-8.2) g/dL Albumin 4.0 (3.4-5.0) g/dL Meds: Medications Discontinued Medications Generic Name Dose Route Start Last Admin Trade Name Freq PRN Reason Stop Dose Admin Acetaminophen 1,000 mg 10/14/18 04:30 10/14/18 04:32 Tylenol Extra Strength PO 10/14/18 04:31 1,000 mg ONETIME ONE Administration Levetiracetam 500 mg 10/14/18 05:00 10/14/18 05:29 Keppra PO 500 mg STAT NICOLA Administration Levetiracetam 1,000 mg 10/14/18 09:15 10/14/18 09:28 Keppra PO 1,000 mg STAT NICOLA Administration - Radiology Interpretation Free Text/Narrative:: Right temporal lesion with surrounding hemorrhage. Was on MRI from September 26, hemorrhage perhaps slightly increased with slightly increased vasogenic edema. CT Results Date: 10/14/18 CT Results Time: 05:15 - Re-Assessments/Exams Free Text/Narrative Re-Assessment/Exam: 10/14/18 05:[address] results with patient. Will keep extended ED for neuro observation and consult with oncology and neuro in am. 10/14/18 08:00 Consulted with [facility] regarding CT findings and concern for seizure activity. Discussed case with Dr. Arteaga (neurology) who recommends loading dose of Keppra 1500 mg and then 750 mg BID. Also recommends no driving for 6 months due to seizure. Recommends outpatient neurology f/u in next 1-2 weeks for EEG and MRI. Then discussed case with Dr. Barth (neurosurgeon) who reviewed CT and recommends no blood thinners and outpatient follow up with neurosurgery and radiation oncologist. Departure - Departure Time of Disposition: 09:20 Disposition: Home, Self-Care 01 Condition: Fair Clinical Impression: Seizure, Hemorrhage of right temporal lobe - Discharge Information *PRESCRIPTION DRUG MONITORING PROGRAM REVIEWED*: Not Applicable *COPY OF PRESCRIPTION DRUG MONITORING REPORT IN PATIENT COOPER: Not Applicable Prescriptions: levETIRAcetam [Keppra] 750 mg PO BID #60 tablet Referrals: PCP,None [Ordering Only Provider] - Forms: ED Department Discharge Additional Instructions: - Keppra 750 mg BID - Needs outpatient f/u with neurology in next few weeks for new onset seizure - Needs outpatient f/u with radiation oncologist Dr. Stanotn - Needs outpatient f/u with Dr. Sidhu or RASHIDA Nava in neurosurgery - NO DRIVING for 6 months - No aspirin or other blood thinners - Need to keep systolic BP < 140 - Follow up with PCP for ED recheck this week - My Orders Last 24 Hours: My Active Orders 10/14/18 04:08 Head wo Cont [CT] Stat - Assessment/Plan Last 24 Hours: My Active Orders 10/14/18 04:08 Head wo Cont [CT] Stat
[2018-10-14 04:22] LABS: CHLORIDE,CL 101 mEq/L (98-106); SODIUM,NA 139 mEq/L (136-145)
[2018-10-14] MEDS ORDERED: Acetaminophen 500 MG Tab PO ONE (04:30)
[2018-10-14] MEDS ORDERED: levETIRAcetam 500 MG Tab PO SCH ×2 (05:00→09:15)
[2018-10-14 05:34] VITALS: BP 142/89
== END 2018-10-14 10:15 | disposition home or self-care (01) ==
LOC: CC.ED 03:59
DX: I61.9 Nontraumatic intracerebral hemorrhage, unspecified (principal); R56.9 Unspecified convulsions; E78.00 Pure hypercholesterolemia, unspecified; I10 Essential (primary) hypertension; E11.9 Type 2 diabetes mellitus without complications; Z79.84 Long term (current) use of oral hypoglycemic drugs; Z79.899 Other long term (current) drug therapy
CPT/HCPCS: 36415; 70450; 80053; 82550; 83615; 84484; 85025; 85610; 85730; 99285-25; A9270-GY

== ENCOUNTER 2018-11-28 12:26 | Emergency (ER) | payer BC, MEDICARE ==
[~2018-11-28 12:26] MED LIST changes: +LORazepam 2 MG/ML Syringe ONE; -Lactated Ringers 1,000 ML IV SCH; -Propofol 200 MG/20 ML SDV IV ONE
[2018-11-28] MEDS ORDERED: LORazepam 2 MG/ML Syringe IM STA (12:32)
[2018-11-28] MEDS ORDERED: Ondansetron 4 MG/2 ML SDV IVPUSH PRN (12:38)
[2018-11-28] MEDS ORDERED: Lactated Ringers 1,000 ML IV SCH (12:45)
[2018-11-28] MEDS ORDERED: LORazepam 2 MG/ML Syringe IM ONE (13:05)
--- NOTE | 2018-11-28 13:08 | EDM.PDOC ---
ED HPI GENERAL MEDICAL PROBLEM - General Chief Complaint: Neurological Problem Stated Complaint: seizure Time Seen by Provider: 11/28/18 12:26 Source of Information: Reports: EMS, Family History Limitations: Reports: Altered Mental Status, Combative/Threatening - History of Present Illness INITIAL COMMENTS - FREE TEXT/NARRATIVE: Patient presents per EMS with concerns for seizure activity. [place] the park, gr[place] burgers for the local festivities. Fell back on to a chair and then hit the ground. Did hit his head. Was jerking. Son concerned that dehydrated, has over exerted the last week preparing for the 28 of November activities. Had an episode like this about a month ago while in bed. states he woke up jerking, concerns about a seizure. Was evaluated by neurology since then and son states they did not feel it was a seizure by testing they did. Stopped the Keppra at that time. Family relates he had not felt well while taking the med. He does have a history of rectal cancer with metastasis to the brain and lung. Patient combative with son and EMS after event. Was given IM Versed enroute here. Noted to be incontinent of urine. Is oriented to person and place, aware of who son and are as well as this provider but has no recall of the events prior to being here. He did bite his tongue, has blood in his mouth. Feels nauseated. No vomiting but had dry heaving. Denies chest pain or shortness of breath. No neck pain. admits to a headache and "just not feeling well" Onset: Today, Sudden Duration: Minutes: Location: Reports: Head, Generalized Quality: Reports: Ache Associated Symptoms: Reports: Confusion, Diaphoresis, Fever/Chills, Nausea/ Vomiting, Seizure, Weakness. Denies: Shortness of Breath Treatments REAL ESTATE AGENCY PRINCIPAL: Reports: Other (see below) Other Treatments REAL ESTATE AGENCY PRINCIPAL: Versed 1 mg IM - Related Data Allergies Allergy/AdvReac Type Severity Reaction Status Date / Time No Known Allergies Allergy Verified 11/28/18 13:02 Home Meds: Home Meds Simvastatin 40 mg PO BEDTIME 03/04/15 [History] metFORMIN [Glucophage] 500 mg PO BID 04/07/15 [History] Cholecalciferol (Vitamin D3) [Vitamin D3] 1,000 unit PO DAILY 06/10/16 [History] Ondansetron HCl [Zofran] 4 mg PO Q8H PRN 06/10/16 [History] Tamsulosin HCl [Flomax] 0.8 mg PO DAILY 06/10/16 [History] Multivitamin [Multivitamins] 1 tab PO DAILY 06/21/16 [History] [place]-3/DHA/Epa/Fish Oil [Fish Oil 1,000 mg Softgel] 1,000 mg PO DAILY 06/21/16 [History] Cranberry 500 mg PO DAILY 06/24/16 [History] Diphenoxylate HCl/Atropine [Lomotil] 1 tab PO Q6H PRN 06/24/16 [History] Dutasteride [Avodart] 0.5 mg PO DAILY 01/30/18 [History] Ferrous Sulfate [Ferosul] 650 mg PO DAILY 02/01/18 [History] Omeprazole Magnesium [Prilosec Otc] 20 mg PO DAILY 10/14/18 [History] Ubidecarenone [Co Q-10] 200 mg PO DAILY 10/14/18 [History] Past Medical History HEENT History: Reports: Other (See Below) Other HEENT History: wears glasses Cardiovascular History: Reports: High Cholesterol, Hypertension Endocrine/Metabolic History: Reports: Diabetes, Type II Oncologic (Cancer) History: Reports: Other (See Below) Other Oncologic History: RECTAL with metastasis to lung and brain - Past Surgical History Other HEENT Surgeries/Procedures: eye lid surgery Other GI Surgeries/Procedures: rectal cancer with polypectomy Social & Family History - Family History Family Medical History: Noncontributory - Caffeine Use Caffeine Use: Reports: Coffee ED ROS GENERAL - Review of Systems Review Of Systems: See Below Constitutional: Reports: Fever, Weakness, Diaphoresis HEENT: Reports: Other (blood noted in mouth). Denies: Ear Pain, Nosebleed, Throat Pain, Throat Swelling Respiratory: Denies: Shortness of Breath, Cough Cardiovascular: Reports: Edema. Denies: Chest Pain, Lightheadedness Endocrine: Reports: Fatigue GI/Abdominal: Reports: Nausea. Denies: Abdominal Pain, Vomiting : Reports: Incontinence Musculoskeletal: Reports: No Symptoms Skin: Reports: Diaphoresis Neurological: Reports: Headache, Weakness Psychiatric: Reports: No Symptoms - Physical Exam Exam: See Below Exam Limited By: Combative/Threatening General Appearance: Anxious, Mild Distress Eye Exam: Bilateral Eye: EOMI, PERRL Ears: Normal External Exam, Normal TMs Nose: Normal Inspection, Normal Mucosa, No Blood Throat/Mouth: Evidence of Tongue Biting Head Exam: Normocephalic Neck: Normal Inspection, Supple, Non-Tender, Full Range of Motion Respiratory/Chest: No Respiratory Distress, Lungs Clear, Normal Breath Sounds Cardiovascular: Tachycardia GI/Abdominal: Normal Bowel Sounds, Soft, Non-Tender Neuro Exam (Abbreviated): Alert, Oriented (person and place), CN II-XII Intact ( follows some commands, does redirected. Squeezes hands. Moves all extremities. Very anxious on arrival. Has no recall of events. Conversation inappropriate but does know family members at bedside.), No Motor/Sensory Deficits Extremities: Normal Inspection, Pedal Edema (1+) Skin Exam: Diaphoretic Course - Orders/Labs/Meds Orders: Active Orders 24 hr Category Date Time Status Head wo Cont [CT] Stat Exams 11/28/18 12:36 Ordered C-REACTIVE PROTEIN [CHEM] Stat Lab 11/28/18 12:35 Ordered COMPREHENSIVE METABOLIC PN,CMP [CHEM] Stat Lab 11/28/18 12:35 Ordered CREATINE KINASE,CK [CHEM] Stat Lab 11/28/18 12:36 Ordered LACTATE DEHYDROGENASE,LDH [CHEM] Stat Lab 11/28/18 12:36 Ordered TROPONIN I [CHEM] Stat Lab 11/28/18 12:36 Ordered Lactated Ringers [Ringers, Lactated] 1,000 ml Med 11/28/18 12:45 Ordered IV ASDIRECTED Ondansetron [Zofran] Med 11/28/18 12:38 Ordered 4 mg IVPUSH Q6H PRN EKG 12 Lead [EK] Stat Ther 11/28/18 12:36 Ordered Medication Orders Lactated Ringer's (Ringers, Lactated) 1,000 mls @ 250 mls/hr IV ASDIRECTED NICOLA Ondansetron HCl (Zofran) 4 mg IVPUSH Q6H PRN PRN Reason: Nausea Labs: Laboratory Tests 11/28/18 11/28/18 Range/Units 12:45 12:45 WBC 8.3 (5.0-10.0) 10^3/uL RBC 4.86 (4.50-6.00) 10^6/uL Hgb 14.8 (14.0-18.0) g/dL Hct 43.6 (40.0-54.0) % MCV 89.7 (82.0-94.0) fL MCH 30.5 (27.0-32.0) pg MCHC 33.9 (33.0-38.0) g/dL RDW Coeff of Maikel 13.5 (11.0-15.0) % Plt Count 91 L (150-400) 10^3/uL Neut % (Auto) 72.4 (35-85) % Lymph % (Auto) 15.1 (10-55) % [place]oval % (Auto) 10.1 (0-16) % Eos % (Auto) 2.0 (0-5) % Baso % (Auto) 0.4 (0-3) % Neut # (Auto) 6.02 (1.80-7.00) 10^3/uL Lymph # (Auto) 1.26 (1.00-4.80) 10^3/uL [place] # (Auto) 0.84 H (0.00-0.80) 10^3/uL Eos # (Auto) 0.17 (0.00-0.45) 10^3/uL Baso # (Auto) 0.03 10^3/uL POC Sodium 136 L (138-146) mmol/L POC Potassium 3.4 L (3.5-4.9) mmol/L POC Chloride 98 (98-109) mmol/L POC Total CO2 17 L (21-32) mmol/L POC BUN 14 (8-26) mg/dL POC Creatinine 0.8 (0.6-1.3) mg/dL POC Glucose 151 H (70-99) mg/dL POC WB Ioniz Calcium 1.1 L (1.12-1.32) Meds: Medications Generic Name Dose Route Start Last Admin Trade Name Freq PRN Reason Stop Dose Admin Lactated Ringer's 1,000 mls @ 250 mls/hr 11/28/18 12:45 Ringers, Lactated IV ASDIRECTED NICOLA Ondansetron HCl 4 mg 11/28/18 12:38 Zofran IVPUSH Q6H PRN Nausea Discontinued Medications Generic Name Dose Route Start Last Admin Trade Name Freq PRN Reason Stop Dose Admin Lorazepam Confirm 11/28/18 12:17 Ativan Administered 11/28/18 12:18 Dose 2 mg .ROUTE .STK-MED ONE Lorazepam 2 mg 11/28/18 12:32 Ativan IM 11/28/18 12:33 ONETIME STA - Re-Assessments/Exams Free Text/Narrative Re-Assessment/Exam: 11/28/[address] report received from [facility]. Has the noted chronic cerebellar lesion but now noted to have large hemorrhage in that region. Contacted [facility]. While awaiting to speak with hospitalist, patient's blood pressure did drop to 93/59, oxygen sats dropped. Drowsy. Does awaken to verbal command and sats will improve minimally but requiring NRB at 12 liters to keep sats at 93% unless stimulated. IV fluids infusing. Spoke with alteration worker, Dr. Acosta with Dr. White, neurosurgeon on the call as well. Life flight paged. Advised to protect airway. ultimately spoke then with dr. Benedict in ER who agreed to accept the patient in transfer with consulting with neurosurgery at that time. Shanna and son Bautista here throughout time in ER. Aware of diagnostic findings. Informed of transfer to [facility]. Risks and benefits discussed. risks of transfer include aircraft crash, worsening of condition and . Benefits of transfer include specialized neurologic/oncologic care and interventions/ testing. Risks of non transfer include worsening status and possibly . Benefits of non transfer include care close to home. Son and agree to transfer. Departure - Departure Time of Disposition: 14:25 Disposition: DC/Tfer to Acute Hospital 02 Condition: Undetermined Clinical Impression: Seizure, Cerebellar hemorrhage - Discharge Information *PRESCRIPTION DRUG MONITORING PROGRAM REVIEWED*: No *COPY OF PRESCRIPTION DRUG MONITORING REPORT IN PATIENT COOPER: No Forms: ED Department Discharge Additional Instructions: Transfer [facility]. Dr. Benedict, accepting physician. - My Orders Last 24 Hours: My Active Orders 11/28/18 12:35 C-REACTIVE PROTEIN [CHEM] Stat COMPREHENSIVE METABOLIC PN,CMP [CHEM] Stat 11/28/18 12:36 Head wo Cont [CT] Stat CREATINE KINASE,CK [CHEM] Stat LACTATE DEHYDROGENASE,LDH [CHEM] Stat TROPONIN I [CHEM] Stat EKG 12 Lead [EK] Stat 11/28/18 12:38 Ondansetron [Zofran] 4 mg IVPUSH Q6H PRN 11/28/18 12:45 Lactated Ringers [Ringers, Lactated] 1,000 ml IV ASDIRECTED - Assessment/Plan Last 24 Hours: My Active Orders 11/28/18 12:35 C-REACTIVE PROTEIN [CHEM] Stat COMPREHENSIVE METABOLIC PN,CMP [CHEM] Stat 11/28/18 12:36 Head wo Cont [CT] Stat CREATINE KINASE,CK [CHEM] Stat LACTATE DEHYDROGENASE,LDH [CHEM] Stat TROPONIN I [CHEM] Stat EKG 12 Lead [EK] Stat 11/28/18 12:38 Ondansetron [Zofran] 4 mg IVPUSH Q6H PRN 11/28/18 12:45 Lactated Ringers [Ringers, Lactated] 1,000 ml IV ASDIRECTED
[2018-11-28] MEDS ORDERED: Midazolam 1 MG/ML 2 ML SDV ONE (13:22)
[2018-11-28 14:13] VITALS: BP 117/74
[2018-11-28 14:45] VITALS: PULSE 95
[2018-11-30 10:52] LABS: CHLORIDE,CL 98 mEq/L (98-106); SODIUM,NA 138 mEq/L (136-145)
== END 2018-11-28 15:08 ==
LOC: CC.ED 12:26
DX: S06.379A Contusion, laceration, and hemorrhage of cerebellum with loss of consciousness of unspecified duration, initial encounter (principal); R56.9 Unspecified convulsions; E78.00 Pure hypercholesterolemia, unspecified; I10 Essential (primary) hypertension; E11.9 Type 2 diabetes mellitus without complications; Z79.84 Long term (current) use of oral hypoglycemic drugs; Z79.899 Other long term (current) drug therapy; W18.39XA Other fall on same level, initial encounter; Y92.830 Public park as the place of occurrence of the external cause; R40.2412 Glasgow coma scale score 13-15, at arrival to emergency department
CPT/HCPCS: 36415; 70450; 80047; 80053; 82550; 83615; 84484; 85025; 86140; 93005; 96361; 96372; 96374; 99285; J2060; J2405; J7120

== ENCOUNTER 2019-01-08 10:13 | Emergency (ER) | payer BC ==
[2019-01-08] MEDS ORDERED: Ondansetron 4 MG/2 ML SDV ONE (10:47)
--- NOTE | 2019-01-08 10:49 | EDM.PDOC ---
ED HPI GENERAL MEDICAL PROBLEM - General Chief Complaint: General Stated Complaint: weakness Time Seen by Provider: 01/08/19 10:20 Source of Information: Reports: Patient History Limitations: Reports: No Limitations - History of Present Illness INITIAL COMMENTS - FREE TEXT/NARRATIVE: Patient presents with son to ER with increased weakness and headache. States he didn't feel well this am, thought it was related to the weather yesterday. "maybe got too chilled". He felt nauseated this am, no vomiting. Awoke this am to go to work but had a severe headache so just laid down on the couch. He took some tylenol and felt a little better an hour later. At around 0930, thought should possibly try to get up and eat something but couldn't even walk. Had to crawl to his bedroom. 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 On arrival here, is alert and oriented, generally weak all over. Thought possibly had fever, just felt chilled. He was diagnosed with a seizure disorder about 6 weeks ago, has been taking his Keppra consistently. No seizure activity this am per son. He has not had a cough, no chest congestion, no shortness of breath. History of lung cancer with mets to the brain. He had presented by ambulance back on November 28, CT scan was done with notable blood around the tumor in his brain. Was transferred to [place]. Oncology has just been watching this, did not require additional surgeries. Was nauseated with retching on arrival. Blood pressure high on arrival. Onset: Today, Gradual Duration: Hour(s): Location: Reports: Head, Generalized Quality: Reports: Sharp, Throbbing Severity: Moderate Improves with: Reports: Rest Worsens with: Reports: Movement Associated Symptoms: Reports: Fever/Chills, Nausea/Vomiting, Weakness. Denies: Confusion, Chest Pain, Cough, Loss of Appetite, Shortness of Breath Treatments [employer]: Reports: Acetaminophen - Related Data Allergies Allergy/AdvReac Type Severity Reaction Status Date / Time No Known Allergies Allergy Verified 01/08/19 10:21 Home Meds: Home Meds Simvastatin 40 mg PO BEDTIME 03/04/15 [History] metFORMIN [Glucophage] 500 mg PO BID 04/07/15 [History] Cholecalciferol (Vitamin D3) [Vitamin D3] 1,000 unit PO DAILY 06/10/16 [History] Ondansetron HCl [Zofran] 4 mg PO Q8H PRN 06/10/16 [History] Tamsulosin HCl [Flomax] 0.8 mg PO DAILY 06/10/16 [History] Multivitamin [Multivitamins] 1 tab PO DAILY 06/21/16 [History] [place]-3/DHA/Epa/Fish Oil [Fish Oil 1,000 mg Softgel] 1,000 mg PO DAILY 06/21/16 [History] Cranberry 500 mg PO DAILY 06/24/16 [History] Diphenoxylate HCl/Atropine [Lomotil] 1 tab PO Q6H PRN 06/24/16 [History] Dutasteride [Avodart] 0.5 mg PO DAILY 01/30/18 [History] Ferrous Sulfate [Ferosul] 650 mg PO DAILY 02/01/18 [History] Omeprazole Magnesium [Prilosec Otc] 20 mg PO DAILY 10/14/18 [History] Ubidecarenone [Co Q-10] 200 mg PO DAILY 10/14/18 [History] Past Medical History HEENT History: Reports: Other (See Below) Other HEENT History: wears glasses Cardiovascular History: Reports: High Cholesterol, Hypertension Endocrine/Metabolic History: Reports: Diabetes, Type II Oncologic (Cancer) History: Reports: Other (See Below) Other Oncologic History: RECTAL with metastasis to lung and brain - Past Surgical History Other HEENT Surgeries/Procedures: eye lid surgery Other GI Surgeries/Procedures: rectal cancer with polypectomy Social & Family History - Family History Family Medical History: Noncontributory - Tobacco Use Smoking Status *Q: Never Smoker Second Hand Smoke Exposure: No - Caffeine Use Caffeine Use: Reports: Coffee ED ROS GENERAL - Review of Systems Review Of Systems: See Below Constitutional: Reports: Chills, Malaise, Weakness, Fatigue. Denies: Fever, Decreased Appetite HEENT: Denies: Ear Pain, Sinus Problem, Throat Pain Respiratory: Denies: Shortness of Breath, Cough Cardiovascular: Denies: Chest Pain, Edema, Lightheadedness Endocrine: Reports: Fatigue GI/Abdominal: Reports: Nausea. Denies: Abdominal Pain, Vomiting : Reports: Frequency Musculoskeletal: Reports: No Symptoms Skin: Reports: No Symptoms Neurological: Reports: Headache, Difficulty Walking, Weakness. Denies: Confusion, Dizziness, Seizure Psychiatric: Reports: No Symptoms ED EXAM, GENERAL - Physical Exam Exam: See Below Exam Limited By: No Limitations General Appearance: Alert, WD/WN, No Apparent Distress Eye Exam: Bilateral Eye: EOMI, PERRL Ears: Normal External Exam, Normal TMs Nose: Normal Inspection, Normal Mucosa, No Blood Throat/Mouth: Normal Inspection, Normal Oropharynx Head: Normocephalic Neck: Normal Inspection, Supple, Non-Tender Respiratory/Chest: No Respiratory Distress, Lungs Clear, Normal Breath Sounds Cardiovascular: Regular Rate, Rhythm GI/Abdominal: Normal Bowel Sounds, Soft, Non-Tender Extremities: Normal Inspection, No Pedal Edema Neurological: Alert, Oriented, CN II-XII Intact, Normal Cognition, Abnormal Gait Skin Exam: Warm, Dry Course - Vital Signs Last Recorded V/S: Last Vital Signs Temp 97.7 F 01/08/19 10:15 Pulse 80 01/08/19 11:33 Resp 18 01/08/19 10:45 BP 168/81 H 01/08/19 11:33 Pulse Ox 94 L 01/08/19 10:30 - Orders/Labs/Meds Orders: Active Orders 24 hr Category Date Time Status Head wo Cont [CT] Stat Exams 01/08/19 10:33 Taken Labs: Laboratory Tests 01/08/19 01/08/19 01/08/19 Range/Units 10:28 10:28 13:04 WBC 6.7 (5.0-10.0) 10^3/uL RBC 4.82 (4.50-6.00) 10^6/uL Hgb 14.6 (14.0-18.0) g/dL Hct 43.9 (40.0-54.0) % MCV 91.1 (82.0-94.0) fL MCH 30.3 (27.0-32.0) pg MCHC 33.3 (33.0-38.0) g/dL RDW Coeff of Maikel 15.5 H (11.0-15.0) % Plt Count 59 L (150-400) 10^3/uL Neut % (Auto) 71.9 (35-85) % Lymph % (Auto) 16.6 (10-55) % [place] % (Auto) 10.0 (0-16) % Eos % (Auto) 1.2 (0-5) % Baso % (Auto) 0.3 (0-3) % Neut # (Auto) 4.80 (1.80-7.00) 10^3/uL Lymph # (Auto) 1.11 (1.00-4.80) 10^3/uL [place] # (Auto) 0.67 (0.00-0.80) 10^3/uL Eos # (Auto) 0.08 (0.00-0.45) 10^3/uL Baso # (Auto) 0.02 10^3/uL Sodium 138 (136-145) mEq/L Potassium 3.6 (3.5-5.0) mEq/L Chloride 101 (98-106) mEq/L Carbon Dioxide 29 D (21-32) mmol/L BUN 12 (7-18) mg/dL Creatinine 0.6 L (0.7-1.3) mg/dL Est Cr Clr Drug Dosing 140.56 mL/min Estimated GFR (MDRD) > 60 (>=60) mL/min Glucose 128 H (75-99) mg/dL Calcium 8.6 (8.4-10.1) mg/dL Total Bilirubin 1.5 H (0.0-1.0) mg/dL AST 36 (15-37) U/L ALT 33 (12-78) U/L Alkaline Phosphatase 77 (46-116) U/L Lactate Dehydrogenase 254 H (100-190) U/L Creatine Kinase 66 (35-232) U/L Troponin I < 0.017 (0.00-0.06) ng/mL C-Reactive Protein 0.3 (0.2-0.8) mg/dL Total Protein 6.5 (6.4-8.2) g/dL Albumin 3.6 (3.4-5.0) g/dL Urine Color Yellow (YELLOW) Urine Appearance Clear (CLEAR) Urine pH 7.0 (4.5-8.0) Ur Specific [place] 1.020 (1.003-1.020) Urine Protein 100 H (NEGATIVE) mg/dL Urine Glucose (UA) Negative (NEGATIVE) mg/dL Urine Ketones Negative (NEGATIVE) mg/dL Urine Occult Blood Negative (NEGATIVE) Urine Nitrite Negative (NEGATIVE) Urine Bilirubin Negative (NEGATIVE) Urine Urobilinogen 0.2 (0.2-1.0) EU/dL Ur Leukocyte Esterase Negative (NEGATIVE) Urine RBC Not seen (0-5) /HPF Urine WBC 0-5 (0-5) /HPF Ur Epithelial Cells Rare (NOT SEEN) /HPF Amorphous Sediment Occasional H (NOT SEEN) /HPF Urine Bacteria Occasional H (NOT SEEN) /HPF Urine Mucus Occasional H (NOT SEEN) /HPF Meds: Medications Discontinued Medications Generic Name Dose Route Start Last Admin Trade Name Lindsay PRN Reason Stop Dose Admin Dexamethasone 20 mg 01/08/19 12:46 01/08/19 13:07 Dexamethasone IVPUSH 01/08/19 12:47 20 mg ONETIME ONE Administration Ondansetron HCl Confirm 01/08/19 10:47 01/08/19 11:15 Zofran Administered 01/08/19 10:48 Not Given Dose 4 mg .ROUTE .STK-MED ONE Ondansetron HCl 4 mg 01/08/19 11:04 01/08/19 11:10 Zofran IVPUSH 01/08/19 11:05 4 mg NOW STA Administration - Re-Assessments/Exams Free Text/Narrative Re-Assessment/Exam: 01/08/19 1200 Discussed status of patient with [facility] after call received from radiologist. Patient sleepy, nausea with vomiting with movement. Lesions of brain have increased in size. Dr. Marrufo contacted but is on vacation. Awaiting call from Dr King [phone]- Spoke with Dr. Truong in regards to patient status. Did advise to discuss options with patient in regards to progressive changes related to his cancer. Surgery unlikely due to increase risk of seizures. Further radiation not an option. Was recently on salt tablets and dexamethasone as felt he was a risk for surgery due to platelet count. Dr. Truong advised to discuss survival , options for transfer versus hospice. Did discuss all these options with patient and family. is currently also a patient at [facility] in psychiatry. Son concerned about future plan as was working yesterday and needs plan to control symptoms. Patient requesting transfer to [facility] for further treatment and discussion. Departure - Departure Time of Disposition: 13:26 Disposition: DC/Tfer to Acute Hospital 02 Condition: Poor Clinical Impression: Hemorrhage of right temporal lobe, Metastatic lung cancer (metastasis from lung to other site) - Discharge Information *PRESCRIPTION DRUG MONITORING PROGRAM REVIEWED*: No *COPY OF PRESCRIPTION DRUG MONITORING REPORT IN PATIENT COOPER: No Referrals: PCP,Unknown [Primary Care Provider] - Forms: ED Department Discharge Additional Instructions: Transfer to Dr. Truong per S ambulance - My Orders Last 24 Hours: My Active Orders 01/08/19 10:33 Head wo Cont [CT] Stat - Assessment/Plan Last 24 Hours: My Active Orders 01/08/19 10:33 Head wo Cont [CT] Stat
[2019-01-08 10:54] LABS: CHLORIDE,CL 101 mEq/L (98-106); SODIUM,NA 138 mEq/L (136-145)
[2019-01-08] MEDS ORDERED: Ondansetron 4 MG/2 ML SDV IVPUSH STA (11:04)
[2019-01-08 11:34] VITALS: BP 168/81
[2019-01-08] MEDS ORDERED: Dexamethasone 4 MG/ML SDV IVPUSH ONE (12:46)
== END 2019-01-08 14:00 ==
LOC: CC.ED 10:13
DX: I61.9 Nontraumatic intracerebral hemorrhage, unspecified (principal); C34.90 Malignant neoplasm of unspecified part of unspecified bronchus or lung; C79.31 Secondary malignant neoplasm of brain; E78.00 Pure hypercholesterolemia, unspecified; I10 Essential (primary) hypertension; E11.9 Type 2 diabetes mellitus without complications; Z79.899 Other long term (current) drug therapy; Z79.84 Long term (current) use of oral hypoglycemic drugs
CPT/HCPCS: 70450; 80053; 81001; 82550; 83615; 84484; 85025; 86140; 93005; 96374; 96375; 99285; J1100; J2405

== ENCOUNTER 2019-02-20 06:32 | Inpatient (IN) | payer MEDICARE, BC ==
[2019-02-20 07:16] LABS: CHLORIDE,CL 97 mEq/L (98-106); SODIUM,NA 134 mEq/L (136-145)
--- NOTE | 2019-02-20 07:23 | EDM.PDOC ---
ED HPI GENERAL MEDICAL PROBLEM - General Chief Complaint: General Stated Complaint: weakness, INTERIANO Time Seen by Provider: 02/20/19 07:17 Source of Information: Reports: Patient History Limitations: Reports: No Limitations - History of Present Illness INITIAL COMMENTS - FREE TEXT/NARRATIVE: Izaiah is a 63 year old male who presents to the ED via [facility] with c/o weakness and headache. Does have hx of rectal cancer with mets to brain and lung. Currently not undergoing chemotherapy. Has been doing palliative radiation in past to brain. Follows with Dr. John and Dr. Arcos at [facility]. He reports he was told by his oncologist if he gets more weak and has headache he likely has fluid on his brain. He reports the last 2-3 days he has gotten increasingly weak, to the point where he is unable to ambulate. He reports that he did have a fall last night. Reports he has had a headache since last evening. Rates head pain 4/10. Family reports they have been trying to care for him at home, but the last few days it has been very difficult. He is incontinent of urine. Has been unable to ambulate much the last few days. Son reports he has basically been going from chair to bathroom and bed. Has not been drinking much. Has had a good appetite. Onset Date: 02/19/19 Duration: Constant Location: Reports: Head, Generalized (weakness) Quality: Reports: Ache Severity: Moderate Improves with: Reports: Medication Worsens with: Reports: None Associated Symptoms: Reports: Headaches, Weakness. Denies: Confusion, Chest Pain, Cough, cough w sputum, Diaphoresis, Fever/Chills, Loss of Appetite, Malaise, Nausea/Vomiting, Rash, Seizure, Shortness of Breath, Syncope Treatments FLIGHT ATTENDANT/INFLIGHT MANAGER: Reports: Acetaminophen Right Headache Pain Score (Numeric/FACES): 4 - Related Data Allergies Allergy/AdvReac Type Severity Reaction Status Date / Time No Known Allergies Allergy Verified 02/20/19 06:49 Home Meds: Home Meds Simvastatin 40 mg PO BEDTIME 03/04/15 [History] metFORMIN [Glucophage] 500 mg PO BID 04/07/15 [History] Cholecalciferol (Vitamin D3) [Vitamin D3] 1,000 unit PO DAILY 06/10/16 [History] Ondansetron HCl [Zofran] 4 mg PO Q8H PRN 06/10/16 [History] Tamsulosin HCl [Flomax] 0.8 mg PO DAILY 06/10/16 [History] Multivitamin [Multivitamins] 1 tab PO DAILY 06/21/16 [History] [place]-3/DHA/Epa/Fish Oil [Fish Oil 1,000 mg Softgel] 1,000 mg PO DAILY 06/21/16 [History] Cranberry 500 mg PO DAILY 06/24/16 [History] Diphenoxylate HCl/Atropine [Lomotil] 1 tab PO Q6H PRN 06/24/16 [History] Dutasteride [Avodart] 0.5 mg PO DAILY 01/30/18 [History] Ferrous Sulfate [Ferosul] 650 mg PO DAILY 02/01/18 [History] Omeprazole Magnesium [Prilosec Otc] 20 mg PO DAILY 10/14/18 [History] Ubidecarenone [Co Q-10] 200 mg PO DAILY 10/14/18 [History] Guaifenesin/Pseudoephedrne HCl [Mucinex D ER 600-60 mg Tablet] 1 tab PO BEDTIME 02/20/19 [History] dexAMETHasone [Dexamethasone] 4 mg PO BID 02/20/19 [History] levETIRAcetam [Keppra] 1,000 mg PO BID 02/20/19 [History] Past Medical History HEENT History: Reports: Other (See Below) Other HEENT History: wears glasses Cardiovascular History: Reports: High Cholesterol, Hypertension Endocrine/Metabolic History: Reports: Diabetes, Type II Oncologic (Cancer) History: Reports: Other (See Below) Other Oncologic History: RECTAL with metastasis to lung and brain - Past Surgical History Other HEENT Surgeries/Procedures: eye lid surgery Other GI Surgeries/Procedures: rectal cancer with polypectomy Social & Family History - Family History Family Medical History: Noncontributory - Tobacco Use Smoking Status *Q: Never Smoker - Caffeine Use Caffeine Use: Reports: Coffee - Recreational Drug Use Recreational Drug Use: No ED ROS GENERAL - Review of Systems Review Of Systems: ROS reveals no pertinent complaints other than HPI. ED EXAM, GENERAL - Physical Exam Exam: See Below Exam Limited By: No Limitations General Appearance: Alert, WD/WN, No Apparent Distress Eye Exam: Bilateral Eye: EOMI, PERRL Ears: Normal External Exam, Normal Canal, Hearing Grossly Normal, Normal TMs Head: Atraumatic, Normocephalic Neck: Normal Inspection, Supple, Non-Tender, Full Range of Motion Respiratory/Chest: No Respiratory Distress, Lungs Clear, Normal Breath Sounds, No Accessory Muscle Use, Chest Non-Tender Cardiovascular: Normal Peripheral Pulses, Regular Rate, Rhythm, No Gallop, No JVD, No Murmur, No Rub, Other (1+ edema to BLE) GI/Abdominal: Normal Bowel Sounds, Soft, Non-Tender, No Organomegaly, No Distention, No Abnormal Bruit, No Mass Back Exam: Normal Inspection, Full Range of Motion, NT Extremities: Normal Inspection, Normal Range of Motion, Non-Tender, Normal Capillary Refill, Pedal Edema (1+) Neurological: Alert, Oriented, Normal Cognition, No Motor/Sensory Deficits, Abnormal Gait (significant weakness) Psychiatric: Normal Affect, Normal Mood Skin Exam: Warm, Dry, Intact, Normal Color, No Rash Lymphatic: No Adenopathy Course - Vital Signs Last Recorded V/S: Last Vital Signs Temp 98 F 02/20/19 16:00 Pulse 98 02/20/19 16:00 Resp 20 02/20/19 16:00 BP 150/71 H 02/20/19 16:00 Pulse Ox 95 02/20/19 16:00 - Orders/Labs/Meds Orders: Active Orders 24 hr Category Date Time Status Head wo Cont [CT] Stat Exams 02/20/19 06:50 Taken Medication Orders Acetaminophen (Tylenol) 650 mg PO Q4H PRN PRN Reason: Pain Dexamethasone (Dexamethasone) 4 mg PO BID [facility] Last Admin: 02/20/19 10:44 Dose: 4 mg Diphenoxylate HCl/Atropine (Lomotil 0.025-2.5 Mg) 1 tab PO Q6H PRN PRN Reason: Diarrhea Ferrous Sulfate (Ferrous Sulfate) 648 mg PO DAILY [facility] Last Admin: 02/20/19 10:46 Dose: 648 mg Finasteride (Proscar) 5 mg PO DAILY [facility] Last Admin: 02/20/19 10:44 Dose: 5 mg Guaifenesin (Organ-I Nr) 600 mg PO BEDTIME [facility] Levetiracetam (Keppra) 1,000 mg PO BID [facility] Last Admin: 02/20/19 10:45 Dose: 1,000 mg Metformin HCl (Glucophage) 500 mg PO BID [facility] Last Admin: 02/20/19 10:45 Dose: 500 mg Multivitamins/Minerals/Vitamin C (Tab-A-Dawn) 1 tab PO DAILY [facility] Last Admin: 02/20/19 10:45 Dose: 1 tab Ondansetron HCl (Zofran) 4 mg IV Q6H PRN PRN Reason: Nausea/Vomiting Ondansetron HCl (Zofran Odt) 4 mg PO Q8H PRN PRN Reason: Nausea Pantoprazole Sodium (Protonix) 40 mg PO DAILY [facility] Last Admin: 02/20/19 10:44 Dose: 40 mg Pseudoephedrine HCl (Sudogest) 60 mg PO BEDTIME [facility] Simvastatin (Zocor) 40 mg PO BEDTIME [facility] Sodium Chloride (Saline Flush) 10 ml FLUSH ASDIRECTED PRN PRN Reason: Keep Vein Open Tamsulosin HCl (Flomax) 0.8 mg PO DAILY [facility] Last Admin: 02/20/19 10:45 Dose: 0.8 mg Temazepam (Restoril) 15 mg PO BEDTIME PRN PRN Reason: Sleep Labs: Laboratory Tests 02/20/19 02/20/19 02/20/19 Range/Units 06:50 06:50 07:00 WBC 6.8 (5.0-10.0) 10^3/uL RBC 4.26 L (4.50-6.00) 10^6/uL Hgb 13.2 L (14.0-18.0) g/dL Hct 37.9 L (40.0-54.0) % MCV 89.0 (82.0-94.0) fL MCH 31.0 (27.0-32.0) pg MCHC 34.8 (33.0-38.0) g/dL RDW Coeff of Maikel 15.4 H (11.0-15.0) % Plt Count 55 L (150-400) 10^3/uL Neut % (Auto) 80.0 (35-85) % Lymph % (Auto) 11.5 (10-55) % [place] % (Auto) 8.1 (0-16) % Eos % (Auto) 0.1 (0-5) % Baso % (Auto) 0.3 (0-3) % Neut # (Auto) 5.40 (1.80-7.00) 10^3/uL Lymph # (Auto) 0.78 L (1.00-4.80) 10^3/uL [place] # (Auto) 0.55 (0.00-0.80) 10^3/uL Eos # (Auto) 0.01 (0.00-0.45) 10^3/uL Baso # (Auto) 0.02 10^3/uL Sodium 134 L (136-145) mEq/L Potassium 3.8 (3.5-5.0) mEq/L Chloride 97 L (98-106) mEq/L Carbon Dioxide 30 (21-32) mmol/L BUN 14 (7-18) mg/dL Creatinine 0.7 (0.7-1.3) mg/dL Est Cr Clr Drug Dosing 120.48 mL/min Estimated GFR (MDRD) > 60 (>=60) mL/min Glucose 275 H D (75-99) mg/dL Calcium 8.3 L (8.4-10.1) mg/dL C-Reactive Protein 4.1 H (0.2-0.8) mg/dL Urine Color Yellow (YELLOW) Urine Appearance Clear (CLEAR) Urine pH 8.5 H (4.5-8.0) Ur Specific [place] 1.015 (1.003-1.020) Urine Protein 30 H (NEGATIVE) mg/dL Urine Glucose (UA) 100 H (NEGATIVE) mg/dL Urine Ketones Negative (NEGATIVE) mg/dL Urine Occult Blood Negative (NEGATIVE) Urine Nitrite Negative (NEGATIVE) Urine Bilirubin Negative (NEGATIVE) Urine Urobilinogen 1.0 (0.2-1.0) EU/dL Ur Leukocyte Esterase Negative (NEGATIVE) Urine RBC Not seen (0-5) /HPF Urine WBC 0-5 (0-5) /HPF Ur Epithelial Cells Few H (NOT SEEN) /HPF Urine Bacteria Few H (NOT SEEN) /HPF Urine Mucus Few H (NOT SEEN) /HPF Meds: Medications Generic Name Dose Route Start Last Admin Trade Name Freq PRN Reason Stop Dose Admin Acetaminophen 650 mg 02/20/19 11:18 Tylenol PO Q4H PRN Pain Dexamethasone 4 mg 02/20/19 10:15 02/20/19 10:44 Dexamethasone PO 4 mg BID [facility]A Administration Diphenoxylate HCl/Atropine 1 tab 02/20/19 10:14 Lomotil 0.025-2.5 Mg PO Q6H PRN Diarrhea Ferrous Sulfate 648 mg 02/20/19 08:00 02/20/19 10:46 Ferrous Sulfate PO 648 mg DAILY [facility] Administration Finasteride 5 mg 02/20/19 10:15 02/20/19 10:44 Proscar PO 5 mg DAILY [facility] Administration Guaifenesin 600 mg 02/20/19 20:00 Organ-I Nr PO BEDTIME [facility] Levetiracetam 1,000 mg 02/20/19 10:15 02/20/19 10:45 Keppra PO 1,000 mg BID [facility] Administration Metformin HCl 500 mg 02/20/19 10:15 02/20/19 10:45 Glucophage PO 500 mg BID [facility] Administration Multivitamins/Minerals/Vitamin C 1 tab 02/20/19 10:15 02/20/19 10:45 Tab-A-Dawn PO 1 tab DAILY [facility] Administration Ondansetron HCl 4 mg 02/20/19 08:59 Zofran IV Q6H PRN Nausea/Vomiting Ondansetron HCl 4 mg 02/20/19 10:14 Zofran Odt PO Q8H PRN Nausea Pantoprazole Sodium 40 mg 02/20/19 10:15 02/20/19 10:44 Protonix PO 40 mg DAILY [facility] Administration Pseudoephedrine HCl 60 mg 02/20/19 20:00 Sudogest PO BEDTIME [facility] Simvastatin 40 mg 02/20/19 20:00 Zocor PO BEDTIME [facility] Sodium Chloride 10 ml 02/20/19 08:59 Saline Flush FLUSH ASDIRECTED PRN Keep Vein Open Tamsulosin HCl 0.8 mg 02/20/19 10:15 02/20/19 10:45 Flomax PO 0.8 mg DAILY [facility] Administration Temazepam 15 mg 02/20/19 08:59 Restoril PO BEDTIME PRN Sleep Discontinued Medications Generic Name Dose Route Start Last Admin Trade Name Freq PRN Reason Stop Dose Admin Non-Formulary Medication 1,000 mg 02/20/19 10:15 02/20/19 10:51 [place]-3/Dha/Epa/Fish Oil [Fish Oil 1,000 Mg Softgel] PO Not Given DAILY [facility] Non-Formulary Medication 200 mg 02/20/19 10:15 02/20/19 10:51 Ubidecarenone [Co Q-10] PO Not Given DAILY [facility] - Radiology Interpretation Free Text/Narrative:: CT does show increase in mass size, questionable hemorrhage vs increasing metastasis. Edema has decreased some. CT Results Date: 02/20/19 CT Results Time: 07:55 - Re-Assessments/Exams Free Text/Narrative Re-Assessment/Exam: Long discussion had with patient and family regarding prognosis. CT head does show increasing mass size vs. increasing hemorrhage. Family reports they do not wish to transfer patient to higher level of care. They wish to keep him local and keep him comfortable. Discussed that we are unable to offer any treatment regarding increasing brain mass size. Discussed that only option would perhaps be radiation but that I was unsure if this would be option unless I consulted with oncology. They wish us to notify oncologist of palliative admission and scan results, but do not wish for transfer. They feel he needs therapy to perhaps increase strength. Discussed admission to SNF if family unable to provide care. Family know this may be necessary but are hopeful with some PT and rest he can get strength back and return home. Departure - Departure Time of Disposition: 08:30 Disposition: Admitted As Inpatient 65 Condition: Poor Clinical Impression: Metastatic adenocarcinoma, Generalized weakness, Palliative care patient Failure to thrive Qualifiers: Failure to thrive age range: in adult Qualified Code(s): R62.7 - Adult failure to thrive Bleeding in brain Qualifiers: Intracerebral hemorrhage etiology: nontraumatic - Discharge Information *PRESCRIPTION DRUG MONITORING PROGRAM REVIEWED*: Not Applicable *COPY OF PRESCRIPTION DRUG MONITORING REPORT IN PATIENT COOPER: Not Applicable - Problem List & Annotations (1) Palliative care patient SNOMED Code(s): 394850240 Code(s): Z51.5 - ENCOUNTER FOR PALLIATIVE CARE Status: Acute Current Visit: Yes (2) Bleeding in brain SNOMED Code(s): 667901313 Code(s): I61.9 - NONTRAUMATIC INTRACEREBRAL HEMORRHAGE, UNSPECIFIED Status : Acute Current Visit: Yes Qualifiers: Intracerebral hemorrhage etiology: nontraumatic (3) Failure to thrive SNOMED Code(s): 32491934 Code(s): IKG0265 - Status: Acute Current Visit: Yes Qualifiers: Failure to thrive age range: in adult Qualified Code(s): R62.7 - Adult failure to thrive (4) Generalized weakness SNOMED Code(s): 72887397 Code(s): R53.1 - WEAKNESS Status: Acute Current Visit: Yes (5) Metastatic adenocarcinoma SNOMED Code(s): 462483446, 484225643, 339109555 Code(s): C79.9 - SECONDARY MALIGNANT NEOPLASM OF UNSPECIFIED SITE Status: Acute Current Visit: Yes - Problem List Review Problem List Initiated/Reviewed/Updated: Yes - My Orders Last 24 Hours: My Active Orders 02/20/19 06:50 Head wo Cont [CT] Stat - Assessment/Plan Admission H&P: Please use this note as an admission H&P Last 24 Hours: My Active Orders 02/20/19 06:50 Head wo Cont [CT] Stat Assessment:: Failure to thrive Metastatic adenocarcinoma Generalized weakness Brain mass with surrounding hemorrhage Plan: Patient and family desire palliative care admission. They do not wish to transfer to higher level of care. Patient has significant weakness and unable to care for self at home. Does have brain mass that has enlarged since last scan. Patient has known poor prognosis. Family and patient very aware of this. Family does wish to continue with code I status at this time. They are hopeful he can regain some strength. Consult to PT for strengthening. Consult to case management. Labs note WBC of 6.8, hgb 13.2. Na of 134 and chloride of 97. CRP 4.1. UA negative. Will give patient 1 L NS. Admit acute palliative care to Dr. Andersen service.
[2019-02-20] MEDS ORDERED: Ondansetron 4 MG/2 ML SDV IV PRN (08:59)
[2019-02-20] MEDS ORDERED: Sodium Chloride 0.9% 10 ML Syringe FLUSH PRN (08:59)
[2019-02-20] MEDS ORDERED: Temazepam 15 MG Cap PO PRN (08:59)
[2019-02-20] MEDS ORDERED: Atropine/Diphenoxylate 0.025-2.5 MG Tab PO PRN (10:14)
[2019-02-20] MEDS ORDERED: Non-Formulary Medication 1 Each (Omega-3/Dha/Epa/Fish Oil [Fish Oil 1,000 Mg Softgel] 1,00 PO SCH (10:15)
[2019-02-20] MEDS ORDERED: Non-Formulary Medication 1 Each (Ubidecarenone [Co Q-10] 200 MG) PO SCH (10:15)
[2019-02-20] MEDS: Dexamethasone 4 MG Tab PO SCH ×2 (10:44→20:03)
[2019-02-20] MEDS: Pantoprazole 40 MG Tab.CR PO SCH (10:44)
[2019-02-20] MEDS: Finasteride 5 MG Tab PO SCH (10:44)
[2019-02-20] MEDS: metFORMIN 500 MG Tab PO SCH ×2 (10:45→20:04)
[2019-02-20] MEDS: levETIRAcetam 500 MG Tab PO SCH ×2 (10:45→20:04)
[2019-02-20] MEDS: Multivitamin Tab PO SCH (10:45)
[2019-02-20] MEDS: Tamsulosin 0.4 MG Cap.ER PO SCH (10:45)
[2019-02-20] MEDS: Ferrous Sulfate 324 MG Tab.EC PO SCH (10:46)
[2019-02-20] MEDS ORDERED: Sodium Chloride 0.9% 1,000 ML IV SCH (19:00)
[2019-02-20] MEDS: Pseudoephedrine 30 MG Tab PO SCH (20:03)
[2019-02-20] MEDS: guaiFENesin 200 MG Tab PO SCH (20:03)
[2019-02-20] MEDS: Simvastatin 40 MG Tab PO SCH (20:03)
[2019-02-20] MEDS: Acetaminophen 325 MG Tab PO PRN (20:04)
[2019-02-20] MEDS ORDERED: Insulin Regular, Human 100 Units/ML 3 ML Vial SUBCUT ONE (23:06)
[2019-02-20] MEDS ORDERED: Insulin Lispro 100 Units/ML 3 ML Vial SUBCUT ONE (23:21)
[2019-02-21] MEDS ORDERED: Insulin Lispro 100 Units/ML 3 ML Vial SUBCUT ONE (01:33)
[2019-02-21] MEDS: Tamsulosin 0.4 MG Cap.ER PO SCH (08:22)
[2019-02-21] MEDS: Acetaminophen 325 MG Tab PO PRN ×2 (08:22→15:53)
[2019-02-21] MEDS: levETIRAcetam 500 MG Tab PO SCH ×2 (08:22→19:49)
[2019-02-21] MEDS: Pantoprazole 40 MG Tab.CR PO SCH (08:22)
[2019-02-21] MEDS: Multivitamin Tab PO SCH (08:22)
[2019-02-21] MEDS: Finasteride 5 MG Tab PO SCH (08:22)
[2019-02-21] MEDS: metFORMIN 500 MG Tab PO SCH ×2 (08:22→19:48)
[2019-02-21] MEDS: Dexamethasone 4 MG Tab PO SCH ×2 (08:22→19:48)
[2019-02-21] MEDS: Ferrous Sulfate 324 MG Tab.EC PO SCH (08:22)
--- NOTE | 2019-02-21 08:25 | PCM.PN ---
- General Info Date of Service: 02/21/19 Admission Dx/Problem (Free Text): Weakness related to brain cancer Subjective Update: Patient admits to fatigue and weakness this am. Questions if this "is the end" . Relates won't be taking any further chemo or radiation. Family has been unable to care for him due to leg weakness. He was admitted for palliative care , physical therapy to regain strength in hopes of returning home. He states "not sure if that is going to happen". He does admit to a headache this am. Requesting tylenol, states works for his discomfort. No vision changes. Functional Status: Reports: Pain Controlled (Admits feels better after taking tylenol) - Review of Systems General: Reports: Weakness, Fatigue, Malaise. Denies: Fever HEENT: Reports: Headaches. Denies: Ear Pain, Sinus Congestion, Sore Throat Pulmonary: Denies: Shortness of Breath, Cough Cardiovascular: Reports: Edema. Denies: Chest Pain, Lightheadedness Gastrointestinal: Denies: Abdominal Pain, Nausea, Vomiting Genitourinary: Reports: Incontinence Musculoskeletal: Reports: No Symptoms Skin: Reports: No Symptoms Neurological: Reports: Headache, Weakness - Patient Data Vitals - Most Recent: Last Vital Signs Temp 97.9 F 02/21/19 04:00 Pulse 88 02/21/19 04:00 Resp 20 02/21/19 04:00 BP 138/70 02/21/19 04:00 Pulse Ox 95 02/21/19 04:00 Weight - Most Recent: 275 lb 9.6 oz Lab Results Last 24 Hours: Laboratory Results - last 24 hr 02/20/19 02/21/19 Range/Units 22:58 01:20 POC Glucose > 500 H* 352 H (75-105) mg/dl Med Orders - Current: Current Medications Acetaminophen (Tylenol) 650 mg PO Q4H PRN PRN Reason: Pain Last Admin: 02/20/19 20:04 Dose: 650 mg Dexamethasone (Dexamethasone) 4 mg PO BID [facility] Last Admin: 02/20/19 20:03 Dose: 4 mg Diphenoxylate HCl/Atropine (Lomotil 0.025-2.5 Mg) 1 tab PO Q6H PRN PRN Reason: Diarrhea Ferrous Sulfate (Ferrous Sulfate) 648 mg PO DAILY [facility] Last Admin: 02/20/19 10:46 Dose: 648 mg Finasteride (Proscar) 5 mg PO DAILY [facility] Last Admin: 02/20/19 10:44 Dose: 5 mg Guaifenesin (Organ-I Nr) 600 mg PO BEDTIME [facility] Last Admin: 02/20/19 20:03 Dose: 600 mg Sodium Chloride (Normal Saline) 1,000 mls @ 75 mls/hr IV ASDIRECTED [facility] Stop: 02/21/19 08:19 Levetiracetam (Keppra) 1,000 mg PO BID [facility] Last Admin: 02/20/19 20:04 Dose: 1,000 mg Metformin HCl (Glucophage) 500 mg PO BID [facility] Last Admin: 02/20/19 20:04 Dose: 500 mg Multivitamins/Minerals/Vitamin C (Tab-A-Dawn) 1 tab PO DAILY [facility] Last Admin: 02/20/19 10:45 Dose: 1 tab Ondansetron HCl (Zofran) 4 mg IV Q6H PRN PRN Reason: Nausea/Vomiting Ondansetron HCl (Zofran Odt) 4 mg PO Q8H PRN PRN Reason: Nausea Pantoprazole Sodium (Protonix) 40 mg PO DAILY [facility] Last Admin: 02/20/19 10:44 Dose: 40 mg Pseudoephedrine HCl (Sudogest) 60 mg PO BEDTIME [facility] Last Admin: 02/20/19 20:03 Dose: 60 mg Simvastatin (Zocor) 40 mg PO BEDTIME [facility] Last Admin: 02/20/19 20:03 Dose: 40 mg Sodium Chloride (Saline Flush) 10 ml FLUSH ASDIRECTED PRN PRN Reason: Keep Vein Open Tamsulosin HCl (Flomax) 0.8 mg PO DAILY [facility] Last Admin: 02/20/19 10:45 Dose: 0.8 mg Temazepam (Restoril) 15 mg PO BEDTIME PRN PRN Reason: Sleep Discontinued Medications Insulin Human Lispro (Humalog) 5 unit SUBCUT ONETIME ONE Stop: 02/20/19 23:22 Last Admin: 02/20/19 23:35 Dose: 5 units Insulin Human Lispro (Humalog) 5 unit SUBCUT ONETIME ONE Stop: 02/21/19 01:34 Last Admin: 02/21/19 01:54 Dose: 5 units Insulin Human Regular (Humulin R) 5 unit SUBCUT ONETIME ONE Stop: 02/20/19 23:07 Last Admin: 02/20/19 23:36 Dose: Not Given Non-Formulary Medication ([place]-3/Dha/Epa/Fish Oil [Fish Oil 1,000 Mg Softgel]) 1,000 mg PO DAILY [facility] Last Admin: 02/20/19 10:51 Dose: Not Given Non-Formulary Medication (Ubidecarenone [Co Q-10]) 200 mg PO DAILY [facility] Last Admin: 02/20/19 10:51 Dose: Not Given - Exam General: Alert, Oriented HEENT: Mucous Membr. Moist/[place] Neck: Supple Lungs: Clear to Auscultation, Normal Respiratory Effort Cardiovascular: Regular Rate, Regular Rhythm GI/Abdominal Exam: Normal Bowel Sounds, Soft, Non-Tender Extremities: Normal Inspection, Pedal Edema Skin: Warm, Dry Neurological: No New Focal Deficit - Problem List & Annotations (1) Failure to thrive SNOMED Code(s): 82706815 Code(s): LQO6719 - Status: Acute Priority: High Current Visit: Yes Qualifiers: Failure to thrive age range: in adult Qualified Code(s): R62.7 - Adult failure to thrive (2) Generalized weakness SNOMED Code(s): 97281652 Code(s): R53.1 - WEAKNESS Status: Acute Priority: High Current Visit: Yes (3) Metastatic adenocarcinoma SNOMED Code(s): 411357394, 174485863, 328655802 Code(s): C79.9 - SECONDARY MALIGNANT NEOPLASM OF UNSPECIFIED SITE Status: Acute Priority: High Current Visit: Yes (4) Palliative care patient SNOMED Code(s): 644412543 Code(s): Z51.5 - ENCOUNTER FOR PALLIATIVE CARE Status: Acute Priority: High Current Visit: Yes (5) Hemorrhage of right temporal lobe SNOMED Code(s): 785513008 Code(s): I61.1 - NONTRAUMATIC INTCRBL HEMORRHAGE IN HEMISPHERE, CORTICAL Status: Acute Priority: High Current Visit: Yes (6) Metastatic lung cancer (metastasis from lung to other site) SNOMED Code(s): 75913385, 070507114 Code(s): C34.90 - MALIGNANT NEOPLASM OF UNSP PART OF UNSP BRONCHUS OR LUNG Status: Acute Priority: High Current Visit: Yes - Problem List Review Problem List Initiated/Reviewed/Updated: Yes - Assessment Assessment:: Weakness in relation to brain mass Palliative care patient Failure to thrive Metastatic adenocarcinoma of lung Brain hemorrhage - Plan Plan:: Labs are stable. Patient continues to have increased weakness, staff reports requires 2-3 nurses for transfers. Denies pain other than headache. Tylenol given this am. Will continue with physical therapy for strengthening. supervisor gate services consult for discharge planning as patient may not be able to return home and care for self.
[2019-02-21] MEDS: LORazepam 0.5 MG Tab PO PRN ×2 (09:16→22:20)
[2019-02-21] MEDS: guaiFENesin 200 MG Tab PO SCH (19:50)
[2019-02-21] MEDS: Pseudoephedrine 30 MG Tab PO SCH (19:50)
[2019-02-21] MEDS: Simvastatin 40 MG Tab PO SCH (19:51)
[2019-02-22] MEDS: Acetaminophen 325 MG Tab PO PRN ×3 (04:07→18:29)
[2019-02-22] MEDS: LORazepam 0.5 MG Tab PO PRN ×2 (04:07→18:28)
[2019-02-22] MEDS: Dexamethasone 4 MG Tab PO SCH ×2 (07:42→19:41)
[2019-02-22] MEDS: levETIRAcetam 500 MG Tab PO SCH ×2 (07:42→19:42)
[2019-02-22] MEDS: metFORMIN 500 MG Tab PO SCH ×2 (07:42→19:41)
[2019-02-22] MEDS: Finasteride 5 MG Tab PO SCH (07:43)
[2019-02-22] MEDS: Pantoprazole 40 MG Tab.CR PO SCH (07:43)
[2019-02-22] MEDS: Multivitamin Tab PO SCH (07:43)
[2019-02-22] MEDS: Ferrous Sulfate 324 MG Tab.EC PO SCH (07:43)
[2019-02-22] MEDS: Tamsulosin 0.4 MG Cap.ER PO SCH (07:43)
--- NOTE | 2019-02-22 13:24 | PCM.PN ---
- General Info Date of Service: 02/22/19 Admission Dx/Problem (Free Text): Weakness related to brain cancer Subjective Update: Patient admits to fatigue and weakness this am. Questions if this "is the end" . Relates won't be taking any further chemo or radiation. Family has been unable to care for him due to leg weakness. He was admitted for palliative care , physical therapy to regain strength in hopes of returning home. He states "not sure if that is going to happen". He does admit to a headache this am. Requesting tylenol, states works for his discomfort. No vision changes. - Review of Systems General: Reports: Weakness HEENT: Reports: No Symptoms Pulmonary: Reports: No Symptoms. Denies: Shortness of Breath Cardiovascular: Reports: No Symptoms. Denies: Chest Pain Gastrointestinal: Reports: No Symptoms. Denies: Abdominal Pain, Nausea, Vomiting Genitourinary: Reports: No Symptoms Musculoskeletal: Reports: No Symptoms Skin: Reports: No Symptoms Neurological: Reports: No Symptoms. Denies: Dizziness Psychiatric: Reports: No Symptoms - Patient Data Vitals - Most Recent: Last Vital Signs Temp 36.9 C 02/22/19 07:55 Pulse 93 02/22/19 07:55 Resp 16 02/22/19 07:55 BP 149/88 H 02/22/19 07:55 Pulse Ox 95 02/22/19 07:55 Weight - Most Recent: 125.01 kg I&O - Last 24 Hours: Intake & Output 02/21/19 02/22/19 02/22/19 22:59 06:59 14:59 Output Total 800 1550 Balance -800 -1550 Lab Results Last 24 Hours: Laboratory Results - last 24 hr 02/21/19 02/22/19 Range/Units 17:07 07:42 POC Glucose 357 H 308 H (75-105) mg/dl Med Orders - Current: Current Medications Acetaminophen (Tylenol) 650 mg PO Q4H PRN PRN Reason: Pain Last Admin: 02/22/19 10:56 Dose: 650 mg Dexamethasone (Dexamethasone) 4 mg PO BID [facility] Last Admin: 02/22/19 07:42 Dose: 4 mg Diphenoxylate HCl/Atropine (Lomotil 0.025-2.5 Mg) 1 tab PO Q6H PRN PRN Reason: Diarrhea Docusate Sodium (Colace) 100 mg PO BID [facility] BEDS AT [facility] Ferrous Sulfate (Ferrous Sulfate) 648 mg PO DAILY [facility] 234 BEDS AT [facility] Last Admin: 02/22/19 07:43 Dose: 648 mg Finasteride (Proscar) 5 mg PO DAILY [facility] 234 B[facility]S AT [facility] Last Admin: 02/22/19 07:43 Dose: 5 mg Guaifenesin (Organ-I Nr) 600 mg PO BEDTIME [facility]CLUDE 234 BEDS AT [facility] Last Admin: 02/21/19 19:50 Dose: 600 mg Heparin Sodium (Porcine) (Heparin Lock Flush 100 Units/Ml) 500 units FLUSH DAILY [facility] 234 BEDS AT [facility] Last Admin: 02/22/19 07:43 Dose: 500 units Levetiracetam (Keppra) 1,000 mg PO BID [facility] 234 BEDS AT [facility] Last Admin: 02/22/19 07:42 Dose: 1,000 mg Lorazepam (Ativan) 1 mg PO Q6H PRN PRN Reason: Anxiety Last Admin: 02/22/19 04:07 Dose: 1 mg Metformin HCl (Glucophage) 500 mg PO BID [facility] 234 B[facility]S AT [facility] Last Admin: 02/22/19 07:42 Dose: 500 mg Multivitamins/Minerals/Vitamin C (Tab-A-Dawn) 1 tab PO DAILY [facility] 234 B[facility]S AT [facility] Last Admin: 02/22/19 07:43 Dose: 1 tab Ondansetron HCl (Zofran) 4 mg IV Q6H PRN PRN Reason: Nausea/Vomiting Ondansetron HCl (Zofran Odt) 4 mg PO Q8H PRN PRN Reason: Nausea Pantoprazole Sodium (Protonix) 40 mg PO DAILY [facility] 234 BEDS AT [facility] Last Admin: 02/22/19 07:43 Dose: 40 mg Pseudoephedrine HCl (Sudogest) 60 mg PO BEDTIME [facility]CLUDE 234 BEDS AT [facility] Last Admin: 02/21/19 19:50 Dose: 60 mg Simvastatin (Zocor) 40 mg PO BEDTIME [facility]CLUDE 234 BEDS AT [facility] Last Admin: 02/21/19 19:51 Dose: 40 mg Sodium Chloride (Saline Flush) 10 ml FLUSH ASDIRECTED PRN PRN Reason: Keep Vein Open Tamsulosin HCl (Flomax) 0.8 mg PO DAILY [facility] 234 BEDS AT [facility] Last Admin: 02/22/19 07:43 Dose: 0.8 mg Temazepam (Restoril) 15 mg PO BEDTIME PRN PRN Reason: Sleep Discontinued Medications Sodium Chloride (Normal Saline) 1,000 mls @ 75 mls/hr IV ASDIRECTED COUNTS INCLUDE 234 BEDS AT [facility] Stop: 02/21/19 08:19 Insulin Human Lispro (Humalog) 5 unit SUBCUT ONETIME ONE Stop: 02/20/19 23:22 Last Admin: 02/20/19 23:35 Dose: 5 units Insulin Human Lispro (Humalog) 5 unit SUBCUT ONETIME ONE Stop: 02/21/19 01:34 Last Admin: 02/21/19 01:54 Dose: 5 units Insulin Human Regular (Humulin R) 5 unit SUBCUT ONETIME ONE Stop: 02/20/19 23:07 Last Admin: 02/20/19 23:36 Dose: Not Given Non-Formulary Medication ([place]-3/Dha/Epa/Fish Oil [Fish Oil 1,000 Mg Softgel]) 1,000 mg PO DAILY [facility] 234 BEDS AT [facility] Last Admin: 02/20/19 10:51 Dose: Not Given Non-Formulary Medication (Ubidecarenone [Co Q-10]) 200 mg PO DAILY [facility] 234 BEDS AT [facility] Last Admin: 02/20/19 10:51 Dose: Not Given - Exam General: Alert, Oriented, Cooperative Neck: Supple Lungs: Clear to Auscultation, Normal Respiratory Effort Cardiovascular: Regular Rate, Regular Rhythm. No: Murmurs GI/Abdominal Exam: Normal Bowel Sounds, Soft, Non-Tender Back Exam: Normal Inspection Extremities: Normal Inspection, Normal Range of Motion, Non-Tender, Normal Capillary Refill Peripheral Pulses: 2+: Radial (L), Radial (R) Skin: Warm, Dry, Intact Neurological: No New Focal Deficit Psy/Mental Status: Alert, Normal Affect, Normal Mood - Problem List & Annotations (1) Generalized weakness SNOMED Code(s): 92171910 Code(s): R53.1 - WEAKNESS Status: Acute Priority: High Current Visit: Yes (2) Metastatic lung cancer (metastasis from lung to other site) SNOMED Code(s): 42913913, 151312916 Code(s): C34.90 - MALIGNANT NEOPLASM OF UNSP PART OF UNSP BRONCHUS OR LUNG Status: Acute Priority: High Current Visit: Yes - Problem List Review Problem List Initiated/Reviewed/Updated: Yes - My Orders Last 24 Hours: My Active Orders 02/22/19 20:00 Docusate Sodium [Colace] 100 mg PO BID - Assessment Assessment:: Weakness in relation to brain mass Palliative care patient Failure to thrive Metastatic adenocarcinoma of lung Brain hemorrhage - Plan Plan:: Labs are stable. Patient continues to have increased weakness, staff reports requires 2-3 nurses for transfers. Denies pain other than headache. Tylenol given this am. Will continue with physical therapy for strengthening. child protective services specialist consult for discharge planning as patient may not be able to return home and care for self. 02/22/19 1315 pt still real weak, multiple nurses to help with basic ADL's, PT is working with pt, see their notes, will continue treatment and reassess in the am. Suspect will need half-way placement.
[2019-02-22] MEDS: Ondansetron 4 MG Tab.DIS PO PRN (14:22)
[2019-02-22] MEDS: Docusate Sodium 100 MG Cap PO SCH (19:41)
[2019-02-22] MEDS: guaiFENesin 200 MG Tab PO SCH (19:42)
[2019-02-22] MEDS: Simvastatin 40 MG Tab PO SCH (19:43)
[2019-02-22] MEDS: Pseudoephedrine 30 MG Tab PO SCH (19:43)
[2019-02-23] MEDS: Acetaminophen 325 MG Tab PO PRN ×2 (01:08→19:16)
[2019-02-23] MEDS: LORazepam 0.5 MG Tab PO PRN ×3 (01:08→19:16)
[2019-02-23] MEDS: Docusate Sodium 100 MG Cap PO SCH ×2 (07:41→19:14)
[2019-02-23] MEDS: Finasteride 5 MG Tab PO SCH (07:41)
[2019-02-23] MEDS: Tamsulosin 0.4 MG Cap.ER PO SCH (07:41)
[2019-02-23] MEDS: Ferrous Sulfate 324 MG Tab.EC PO SCH (07:42)
[2019-02-23] MEDS: metFORMIN 500 MG Tab PO SCH ×2 (07:42→19:14)
[2019-02-23] MEDS: Pantoprazole 40 MG Tab.CR PO SCH (07:42)
[2019-02-23] MEDS: Multivitamin Tab PO SCH (07:42)
[2019-02-23] MEDS: Dexamethasone 4 MG Tab PO SCH ×2 (07:42→19:14)
[2019-02-23] MEDS: levETIRAcetam 500 MG Tab PO SCH ×2 (07:42→19:15)
--- NOTE | 2019-02-23 11:01 | PCM.PN ---
- General Info Date of Service: 02/23/19 Admission Dx/Problem (Free Text): Weakness related to brain cancer Subjective Update: Patient admits to fatigue and weakness this am. Questions if this "is the end" . Relates won't be taking any further chemo or radiation. Family has been unable to care for him due to leg weakness. He was admitted for palliative care , physical therapy to regain strength in hopes of returning home. He states "not sure if that is going to happen". He does admit to a headache this am. Requesting tylenol, states works for his discomfort. No vision changes. Functional Status: Reports: Pain Controlled - Review of Systems General: Reports: No Symptoms, Other (weakness). Denies: Fever HEENT: Reports: No Symptoms Pulmonary: Reports: No Symptoms. Denies: Shortness of Breath Cardiovascular: Reports: No Symptoms. Denies: Chest Pain Gastrointestinal: Reports: No Symptoms. Denies: Nausea, Vomiting Genitourinary: Reports: No Symptoms Musculoskeletal: Reports: No Symptoms Neurological: Reports: No Symptoms. Denies: Confusion, Dizziness, Headache Psychiatric: Reports: No Symptoms - Patient Data Vitals - Most Recent: Last Vital Signs Temp 36.6 C 02/23/19 07:53 Pulse 85 02/23/19 07:53 Resp 18 02/23/19 07:53 BP 135/89 02/23/19 07:53 Pulse Ox 95 02/23/19 07:53 Weight - Most Recent: 125.01 kg I&O - Last 24 Hours: Intake & Output 02/22/19 02/23/19 02/23/19 22:59 06:59 14:59 Output Total 950 800 Balance -950 -800 Lab Results Last 24 Hours: Laboratory Results - last 24 hr 02/22/19 02/23/19 Range/Units 17:02 07:39 POC Glucose 325 H 307 H (75-105) mg/dl Med Orders - Current: Current Medications Acetaminophen (Tylenol) 650 mg PO Q4H PRN PRN Reason: Pain Last Admin: 02/23/19 01:08 Dose: 650 mg Dexamethasone (Dexamethasone) 4 mg PO BID [facility] Last Admin: 02/23/19 07:42 Dose: 4 mg Diphenoxylate HCl/Atropine (Lomotil 0.025-2.5 Mg) 1 tab PO Q6H PRN PRN Reason: Diarrhea Docusate Sodium (Colace) 100 mg PO BID [facility] Last Admin: 02/23/19 07:41 Dose: 100 mg Ferrous Sulfate (Ferrous Sulfate) 648 mg PO DAILY [facility] Last Admin: 02/23/19 07:42 Dose: 648 mg Finasteride (Proscar) 5 mg PO DAILY [facility] Last Admin: 02/23/19 07:41 Dose: 5 mg Guaifenesin (Organ-I Nr) 600 mg PO BEDTIME [facility] Last Admin: 02/22/19 19:42 Dose: 600 mg Heparin Sodium (Porcine) (Heparin Lock Flush 100 Units/Ml) 500 units FLUSH DAILY [facility] Last Admin: 02/23/19 07:42 Dose: 500 units Levetiracetam (Keppra) 1,000 mg PO BID [facility] Last Admin: 02/23/19 07:42 Dose: 1,000 mg Lorazepam (Ativan) 1 mg PO Q6H PRN PRN Reason: Anxiety Last Admin: 02/23/19 09:17 Dose: 1 mg Metformin HCl (Glucophage) 500 mg PO BID [facility] Last Admin: 02/23/19 07:42 Dose: 500 mg Multivitamins/Minerals/Vitamin C (Tab-A-Dawn) 1 tab PO DAILY [facility] Last Admin: 02/23/19 07:42 Dose: 1 tab Ondansetron HCl (Zofran) 4 mg IV Q6H PRN PRN Reason: Nausea/Vomiting Ondansetron HCl (Zofran Odt) 4 mg PO Q8H PRN PRN Reason: Nausea Last Admin: 02/22/19 14:22 Dose: 4 mg Pantoprazole Sodium (Protonix) 40 mg PO DAILY [facility] Last Admin: 02/23/19 07:42 Dose: 40 mg Pseudoephedrine HCl (Sudogest) 60 mg PO BEDTIME [facility] Last Admin: 02/22/19 19:43 Dose: 60 mg Simvastatin (Zocor) 40 mg PO BEDTIME [facility] Last Admin: 02/22/19 19:43 Dose: 40 mg Sodium Chloride (Saline Flush) 10 ml FLUSH ASDIRECTED PRN PRN Reason: Keep Vein Open Tamsulosin HCl (Flomax) 0.8 mg PO DAILY [facility] Last Admin: 02/23/19 07:41 Dose: 0.8 mg Temazepam (Restoril) 15 mg PO BEDTIME PRN PRN Reason: Sleep Discontinued Medications Sodium Chloride (Normal Saline) 1,000 mls @ 75 mls/hr IV ASDIRECTED [facility] Stop: 02/21/19 08:19 Insulin Human Lispro (Humalog) 5 unit SUBCUT ONETIME ONE Stop: 02/20/19 23:22 Last Admin: 02/20/19 23:35 Dose: 5 units Insulin Human Lispro (Humalog) 5 unit SUBCUT ONETIME ONE Stop: 02/21/19 01:34 Last Admin: 02/21/19 01:54 Dose: 5 units Insulin Human Regular (Humulin R) 5 unit SUBCUT ONETIME ONE Stop: 02/20/19 23:07 Last Admin: 02/20/19 23:36 Dose: Not Given Non-Formulary Medication ([place]-3/Dha/Epa/Fish Oil [Fish Oil 1,000 Mg Softgel]) 1,000 mg PO DAILY [facility] Last Admin: 02/20/19 10:51 Dose: Not Given Non-Formulary Medication (Ubidecarenone [Co Q-10]) 200 mg PO DAILY [facility] Last Admin: 02/20/19 10:51 Dose: Not Given - Exam General: Alert, Oriented, Cooperative Neck: Supple, Trachea Midline Lungs: Clear to Auscultation, Normal Respiratory Effort Cardiovascular: Regular Rate, Regular Rhythm GI/Abdominal Exam: Normal Bowel Sounds, Soft, Non-Tender Back Exam: Normal Inspection, Full Range of Motion Extremities: Normal Inspection, Normal Range of Motion, Non-Tender, Normal Capillary Refill Peripheral Pulses: 2+: Radial (L) Skin: Warm, Dry, Intact Neurological: No New Focal Deficit Psy/Mental Status: Alert, Normal Affect, Normal Mood - Problem List & Annotations (1) Generalized weakness SNOMED Code(s): 64335612 Code(s): R53.1 - WEAKNESS Status: Acute Priority: High Current Visit: Yes (2) Metastatic lung cancer (metastasis from lung to other site) SNOMED Code(s): 98572324, 320979303 Code(s): C34.90 - MALIGNANT NEOPLASM OF UNSP PART OF UNSP BRONCHUS OR LUNG Status: Acute Priority: High Current Visit: Yes - Problem List Review Problem List Initiated/Reviewed/Updated: Yes - My Orders Last 24 Hours: My Active Orders 02/22/19 20:00 Docusate Sodium [Colace] 100 mg PO BID - Assessment Assessment:: Weakness in relation to brain mass Palliative care patient Failure to thrive Metastatic adenocarcinoma of lung Brain hemorrhage - Plan Plan:: Labs are stable. Patient continues to have increased weakness, staff reports requires 2-3 nurses for transfers. Denies pain other than headache. Tylenol given this am. Will continue with physical therapy for strengthening. consumer services consultant consult for discharge planning as patient may not be able to return home and care for self. 02/22/19 1315 pt still real weak, multiple nurses to help with basic ADL's, PT is working with pt, see their notes, will continue treatment and reassess in the am. Suspect will need fdc placement. 02/23/19 1100 pt is still weak requiring significant nursing help even with routine ADLs, will continue current treatment plan and reassess pt in am and discuss fdc placement
[2019-02-23] MEDS: Pseudoephedrine 30 MG Tab PO SCH (19:14)
[2019-02-23] MEDS: guaiFENesin 200 MG Tab PO SCH (19:15)
[2019-02-23] MEDS: Simvastatin 40 MG Tab PO SCH (19:15)
[2019-02-24] MEDS: Tamsulosin 0.4 MG Cap.ER PO SCH (07:52)
[2019-02-24] MEDS: Docusate Sodium 100 MG Cap PO SCH ×2 (07:53→19:40)
[2019-02-24] MEDS: Dexamethasone 4 MG Tab PO SCH ×2 (07:53→19:39)
[2019-02-24] MEDS: Pantoprazole 40 MG Tab.CR PO SCH (07:53)
[2019-02-24] MEDS: Multivitamin Tab PO SCH (07:53)
[2019-02-24] MEDS: Ferrous Sulfate 324 MG Tab.EC PO SCH (07:53)
[2019-02-24] MEDS: Finasteride 5 MG Tab PO SCH (07:54)
[2019-02-24] MEDS: metFORMIN 500 MG Tab PO SCH ×2 (07:54→19:40)
[2019-02-24] MEDS: Acetaminophen 325 MG Tab PO PRN ×3 (07:54→19:43)
[2019-02-24] MEDS: levETIRAcetam 500 MG Tab PO SCH ×2 (07:54→19:39)
--- NOTE | 2019-02-24 14:17 | PCM.PN ---
- General Info Date of Service: 02/24/19 Admission Dx/Problem (Free Text): Weakness related to brain cancer Subjective Update: Patient admits to fatigue and weakness. Relates won't be taking any further chemo or radiation. He does admit to a headache this am. Requesting tylenol, states works for his discomfort. No vision changes. Patient was admitted for weakness, family unable to care for self. Were hoping to see PT and regain strength in order to return home. Per physical therapy notes, patient did not work with them on Sunday. When questioned about that today, patient states "unsure if I can even do that. I am so tired". Functional Status: Reports: Pain Controlled. Denies: Tolerating Diet (eating very little this am.), Ambulating - Review of Systems General: Reports: Weakness, Fatigue, Malaise HEENT: Reports: Headaches Pulmonary: Denies: Shortness of Breath, Cough Cardiovascular: Denies: Chest Pain, Edema, Lightheadedness Gastrointestinal: Denies: Abdominal Pain, Nausea, Vomiting Genitourinary: Reports: Other (has mcclellan catheter) Musculoskeletal: Reports: No Symptoms Skin: Reports: No Symptoms Neurological: Reports: Headache, Weakness - Patient Data Vitals - Most Recent: Last Vital Signs Temp 98.5 F 02/24/19 08:00 Pulse 92 02/24/19 08:00 Resp 20 02/24/19 08:00 BP 176/79 H 02/24/19 08:00 Pulse Ox 95 02/24/19 08:00 Weight - Most Recent: 275 lb 9.6 oz I&O - Last 24 Hours: Intake & Output 02/23/19 02/24/19 02/24/19 22:59 06:59 14:59 Output Total 900 1000 Balance -900 -1000 Lab Results Last 24 Hours: Laboratory Results - last 24 hr 02/23/19 02/24/19 Range/Units 17:03 07:49 POC Glucose 360 H 279 H (75-105) mg/dl Med Orders - Current: Current Medications Acetaminophen (Tylenol) 650 mg PO Q4H PRN PRN Reason: Pain Last Admin: 02/24/19 07:54 Dose: 650 mg Dexamethasone (Dexamethasone) 4 mg PO BID [facility] Last Admin: 02/24/19 07:53 Dose: 4 mg Diphenoxylate HCl/Atropine (Lomotil 0.025-2.5 Mg) 1 tab PO Q6H PRN PRN Reason: Diarrhea Docusate Sodium (Colace) 100 mg PO BID [facility] Last Admin: 02/24/19 07:53 Dose: 100 mg Ferrous Sulfate (Ferrous Sulfate) 648 mg PO DAILY [facility] Last Admin: 02/24/19 07:53 Dose: 648 mg Finasteride (Proscar) 5 mg PO DAILY [facility] Last Admin: 02/24/19 07:54 Dose: 5 mg Guaifenesin (Organ-I Nr) 600 mg PO BEDTIME [facility] Last Admin: 02/23/19 19:15 Dose: 600 mg Heparin Sodium (Porcine) (Heparin Lock Flush 100 Units/Ml) 500 units FLUSH DAILY [facility] Last Admin: 02/24/19 07:55 Dose: 500 units Levetiracetam (Keppra) 1,000 mg PO BID [facility] Last Admin: 02/24/19 07:54 Dose: 1,000 mg Lorazepam (Ativan) 1 mg PO Q6H PRN PRN Reason: Anxiety Last Admin: 02/23/19 19:16 Dose: 1 mg Metformin HCl (Glucophage) 500 mg PO BID [facility] Last Admin: 02/24/19 07:54 Dose: 500 mg Multivitamins/Minerals/Vitamin C (Tab-A-Dawn) 1 tab PO DAILY [facility] Last Admin: 02/24/19 07:53 Dose: 1 tab Ondansetron HCl (Zofran) 4 mg IV Q6H PRN PRN Reason: Nausea/Vomiting Ondansetron HCl (Zofran Odt) 4 mg PO Q8H PRN PRN Reason: Nausea Last Admin: 02/22/19 14:22 Dose: 4 mg Pantoprazole Sodium (Protonix) 40 mg PO DAILY [facility] Last Admin: 02/24/19 07:53 Dose: 40 mg Pseudoephedrine HCl (Sudogest) 60 mg PO BEDTIME [facility] Last Admin: 02/23/19 19:14 Dose: 60 mg Simvastatin (Zocor) 40 mg PO BEDTIME [facility] Last Admin: 02/23/19 19:15 Dose: 40 mg Sodium Chloride (Saline Flush) 10 ml FLUSH ASDIRECTED PRN PRN Reason: Keep Vein Open Tamsulosin HCl (Flomax) 0.8 mg PO DAILY [facility] Last Admin: 02/24/19 07:52 Dose: 0.8 mg Temazepam (Restoril) 15 mg PO BEDTIME PRN PRN Reason: Sleep Discontinued Medications Sodium Chloride (Normal Saline) 1,000 mls @ 75 mls/hr IV ASDIRECTED [facility] Stop: 02/21/19 08:19 Insulin Human Lispro (Humalog) 5 unit SUBCUT ONETIME ONE Stop: 02/20/19 23:22 Last Admin: 02/20/19 23:35 Dose: 5 units Insulin Human Lispro (Humalog) 5 unit SUBCUT ONETIME ONE Stop: 02/21/19 01:34 Last Admin: 02/21/19 01:54 Dose: 5 units Insulin Human Regular (Humulin R) 5 unit SUBCUT ONETIME ONE Stop: 02/20/19 23:07 Last Admin: 02/20/19 23:36 Dose: Not Given Non-Formulary Medication ([place]-3/Dha/Epa/Fish Oil [Fish Oil 1,000 Mg Softgel]) 1,000 mg PO DAILY [facility] Last Admin: 02/20/19 10:51 Dose: Not Given Non-Formulary Medication (Ubidecarenone [Co Q-10]) 200 mg PO DAILY [facility] Last Admin: 02/20/19 10:51 Dose: Not Given - Exam General: Alert, Oriented, Other (staff reports sleeps much of the day) HEENT: Mucous Membr. Moist/[place] Neck: Supple Lungs: Clear to Auscultation, Normal Respiratory Effort Cardiovascular: Regular Rate, Regular Rhythm GI/Abdominal Exam: Normal Bowel Sounds, Soft, Non-Tender Extremities: Normal Inspection, No Pedal Edema Skin: Warm, Dry Neurological: Other (weakness noted in legs and arms, minimally raises them up off the bed) - Problem List & Annotations (1) Failure to thrive SNOMED Code(s): 01054781 Code(s): [id number] - Status: Acute Priority: High Current Visit: Yes Qualifiers: Failure to thrive age range: in adult Qualified Code(s): R62.7 - Adult failure to thrive (2) Generalized weakness SNOMED Code(s): 57102972 Code(s): R53.1 - WEAKNESS Status: Acute Priority: High Current Visit: Yes (3) Metastatic adenocarcinoma SNOMED Code(s): 561396535, 236489417, 935515763 Code(s): C79.9 - SECONDARY MALIGNANT NEOPLASM OF UNSPECIFIED SITE Status: Acute Priority: High Current Visit: Yes (4) Palliative care patient SNOMED Code(s): 935938361 Code(s): Z51.5 - ENCOUNTER FOR PALLIATIVE CARE Status: Acute Priority: High Current Visit: Yes (5) Hemorrhage of right temporal lobe SNOMED Code(s): 475074203 Code(s): I61.1 - NONTRAUMATIC INTCRBL HEMORRHAGE IN HEMISPHERE, CORTICAL Status: Acute Priority: High Current Visit: Yes (6) Metastatic lung cancer (metastasis from lung to other site) SNOMED Code(s): 77701497, 178811828 Code(s): C34.90 - MALIGNANT NEOPLASM OF UNSP PART OF UNSP BRONCHUS OR LUNG Status: Acute Priority: High Current Visit: Yes - Problem List Review Problem List Initiated/Reviewed/Updated: Yes - Assessment Assessment:: Weakness in relation to brain mass Palliative care patient Failure to thrive Metastatic adenocarcinoma of lung Brain hemorrhage - Plan Plan:: Labs are stable. Patient continues to have increased weakness, staff reports requires 2-3 nurses for transfers. Denies pain other than headache. Tylenol given this am. Will continue with physical therapy for strengthening. adoption services manager consult for discharge planning as patient may not be able to return home and care for self. 02/22/19 1315 pt still real weak, multiple nurses to help with basic ADL's, PT is working with pt, see their notes, will continue treatment and reassess in the am. Suspect will need custodial placement. 02/23/19 1100 pt is still weak requiring significant nursing help even with routine ADLs, will continue current treatment plan and reassess pt in am and discuss custodial placement 02-24-2019 Patient continues to be weak. States is "so tired out". Requires 2 staff members to reposition in bed, which patient does ask for about every 45-60 minutes despite being on the air care bed. He has intact mclcellan catheter. Eating very little this am. When discussing need for skilled care with and patient, he is aware that he needs to work with PT in order to regain strength with goal to return home, skilled coverage for extended stay. Patient does not feel he is capable even of doing this. Did discuss hospice with patient and family. She is aware that these services are available and has yet agreed to do this. Today, states may be a good option. Will consult with hospice. As patient refuses PT, custodial placement was discussed per social work therapist with and son. Have agreed this, likely to transfer tomorrow as they are physically unable to care for patient due to his diagnosis, size and weakness.
[2019-02-24] MEDS: LORazepam 0.5 MG Tab PO PRN (14:50)
[2019-02-24] MEDS ORDERED: Bisacodyl 10 MG Supp RECTAL ONE (17:22)
[2019-02-24] MEDS: guaiFENesin 200 MG Tab PO SCH (19:39)
[2019-02-24] MEDS: Pseudoephedrine 30 MG Tab PO SCH (19:39)
[2019-02-24] MEDS: Simvastatin 40 MG Tab PO SCH (19:39)
[2019-02-25] MEDS: metFORMIN 500 MG Tab PO SCH (07:20)
[2019-02-25] MEDS: Tamsulosin 0.4 MG Cap.ER PO SCH (07:20)
[2019-02-25] MEDS: Docusate Sodium 100 MG Cap PO SCH (07:20)
[2019-02-25] MEDS: Dexamethasone 4 MG Tab PO SCH (07:20)
[2019-02-25] MEDS: Multivitamin Tab PO SCH (07:20)
[2019-02-25] MEDS: levETIRAcetam 500 MG Tab PO SCH (07:21)
[2019-02-25] MEDS: Pantoprazole 40 MG Tab.CR PO SCH (07:21)
[2019-02-25] MEDS: Acetaminophen 325 MG Tab PO PRN (07:21)
[2019-02-25] MEDS: Ferrous Sulfate 324 MG Tab.EC PO SCH (07:21)
[2019-02-25 07:25] VITALS: BP 125/64; PULSE 95
[2019-02-25] MEDS: Ondansetron 4 MG Tab.DIS PO PRN (09:53)
[2019-02-25] MEDS: Finasteride 5 MG Tab PO SCH (09:59)
--- NOTE | 2019-02-25 15:51 | PCM.DCSUM1 ---
Discharge Summary - Hospital Course Free Text/Narrative:: Izaiah presented to ER via EMS with complaints of weakness and increasing headache. Patient has history of rectal cancer with mets to lung and brain. Has undergone chemotherapy and radiation as well as surgeries and oncology did not feel further treatment was beneficial, is palliative care. Has developed seizures in the last 6 months, currently on Keppra for this. Family reports he was told if headache or weakness worsened, likely could have fluid on the brain. Family has been trying to care for patient at home, unable to at this point due to weakness. Is eating fairly well but ambulating very little. Has been incontinent of urine. Admitted with hopes of regaining strength in order to return back home with ability to participate in his own cares. . Diagnosis: Stroke: No Modified Independence Scale: No Symptoms at All Modified Gillian Scale Score: 0 - Discharge Data Discharge Date: 02/25/19 Discharge Disposition: DC/Tfer to SNF 03 Condition: Poor - Referral to Home Health Primary Care Physician: Danny Reis PA-C - Discharge Diagnosis/Problem(s) (1) Failure to thrive SNOMED Code(s): 46734799 ICD Code: [id number] - Status: Acute Priority: High Qualifiers: Failure to thrive age range: in adult Qualified Code(s): R62.7 - Adult failure to thrive (2) Generalized weakness SNOMED Code(s): 82622245 ICD Code: R53.1 - WEAKNESS Status: Acute Priority: High (3) Metastatic adenocarcinoma SNOMED Code(s): 606998458, 252637900, 729094248 ICD Code: C79.9 - SECONDARY MALIGNANT NEOPLASM OF UNSPECIFIED SITE Status: Acute Priority: High (4) Palliative care patient SNOMED Code(s): 889542614 ICD Code: Z51.5 - ENCOUNTER FOR PALLIATIVE CARE Status: Acute Priority: High (5) Hemorrhage of right temporal lobe SNOMED Code(s): 922868848 ICD Code: I61.1 - NONTRAUMATIC INTCRBL HEMORRHAGE IN HEMISPHERE, CORTICAL Status: Acute Priority: High (6) Metastatic lung cancer (metastasis from lung to other site) SNOMED Code(s): 99022842, 600987436 ICD Code: C34.90 - MALIGNANT NEOPLASM OF UNSP PART OF UNSP BRONCHUS OR LUNG Status: Acute Priority: High - Patient Summary/Data Complications: none Consults: Consultations 02/20/19 08:59 Consult to Case Management/Brand Development Manager [CONS] Routine PT Evaluation and Treatment [CONS] Routine Hospital Course: Patient has remained weak. Takes 2-3 nurses to transfer patient, requires assist for turning and repositioning. Patient has not been agreeable to care provided by physical therapy for strengthening. States "time is almost up". Sleeps much of the day. Does have intermittent complaints of headaches, treated with tylenol and does well with that. Eating very little at this point , being fed by staff. Code level was addressed with patient and during stay as initially wanted a code level 1. Patient does not want any further treatment at this point. Did agree to hospice consult, who did meet with patient yesterday afternoon. Patient will transfer to [facility] for palliative care with hospice. Family aware and in agreement. - Patient Instructions Diet: Usual Diet as Tolerated Activity: As Tolerated - Discharge Plan *PRESCRIPTION DRUG MONITORING PROGRAM REVIEWED*: Not Applicable *COPY OF PRESCRIPTION DRUG MONITORING REPORT IN PATIENT COOPER: Not Applicable Prescriptions/Med Rec: Acetaminophen [Tylenol] 650 mg PO Q4H PRN #60 tablet PRN Reason: Pain Docusate Sodium [Colace] 100 mg PO BID #60 cap Home Medications: Home Meds metFORMIN [Glucophage] 500 mg PO BID 04/07/15 [History] Cholecalciferol (Vitamin D3) [Vitamin D3] 1,000 unit PO DAILY 06/10/16 [History] Ondansetron HCl [Zofran] 4 mg PO Q8H PRN 06/10/16 [History] Tamsulosin HCl [Flomax] 0.8 mg PO DAILY 06/10/16 [History] Diphenoxylate HCl/Atropine [Lomotil] 1 tab PO Q6H PRN 06/24/16 [History] Dutasteride [Avodart] 0.5 mg PO DAILY 01/30/18 [History] Ferrous Sulfate [Ferosul] 650 mg PO DAILY 02/01/18 [History] Omeprazole Magnesium [Prilosec Otc] 20 mg PO DAILY 10/14/18 [History] dexAMETHasone [Dexamethasone] 4 mg PO BID 02/20/19 [History] levETIRAcetam [Keppra] 1,000 mg PO BID 02/20/19 [History] Acetaminophen [Tylenol] 650 mg PO Q4H PRN #60 tablet 02/25/19 [Rx] Docusate Sodium [Colace] 100 mg PO BID #60 cap 02/25/19 [Rx] Forms: ED Department Discharge Referrals: Alexei Darby MD [ED Physician] - (Dr. Darby will see him on rounds at [facility]) - Discharge Summary/Plan Comment DC Time >30 min.: Yes Discharge Summary/Plan Comment: Discharge to [facility] for palliative care. Time with patient and family 20 minutes Time for transfer/orders 15 minutes Time for documentation 10 minutes - General Info Date of Service: 02/25/19 Admission Dx/Problem (Free Text: Weakness related to brain cancer Functional Status: Reports: Pain Controlled, Other (catheter intact). Denies: Tolerating Diet, Ambulating - Review of Systems General: Reports: Weakness, Fatigue, Malaise HEENT: Reports: No Symptoms Pulmonary: Denies: Shortness of Breath, Cough Cardiovascular: Denies: Chest Pain, Edema, Lightheadedness Gastrointestinal: Reports: Decreased Appetite. Denies: Abdominal Pain, Nausea, Vomiting Genitourinary: Reports: No Symptoms Musculoskeletal: Reports: No Symptoms Skin: Reports: Pallor Neurological: Reports: Headache, Weakness Psychiatric: Reports: No Symptoms - Patient Data Vitals - Most Recent: Last Vital Signs Temp 98.6 F 02/25/19 07:23 Pulse 95 02/25/19 07:23 Resp 20 02/25/19 07:23 BP 125/64 02/25/19 07:23 Pulse Ox 95 02/25/19 07:23 Weight - Most Recent: 275 lb 9.6 oz I&O - Last 24 hours: Intake & Output 02/25/19 02/25/19 02/25/19 06:59 14:59 22:59 Output Total 1150 Balance -1150 Lab Results - Last 24 hrs: Laboratory Results - last 24 hr 02/24/19 02/25/19 Range/Units 17:12 07:33 POC Glucose 400 H 273 H (75-105) mg/dl Med Orders - Current: Current Medications Discontinued Medications Acetaminophen (Tylenol) 650 mg PO Q4H PRN PRN Reason: Pain Last Admin: 02/25/19 07:21 Dose: 650 mg Bisacodyl (Dulcolax) 10 mg RECTAL ONETIME ONE Stop: 02/24/19 17:23 Last Admin: 02/24/19 17:48 Dose: 10 mg Dexamethasone (Dexamethasone) 4 mg PO BID [facility] Last Admin: 02/25/19 07:20 Dose: 4 mg Diphenoxylate HCl/Atropine (Lomotil 0.025-2.5 Mg) 1 tab PO Q6H PRN PRN Reason: Diarrhea Docusate Sodium (Colace) 100 mg PO BID [facility] Last Admin: 02/25/19 07:20 Dose: 100 mg Ferrous Sulfate (Ferrous Sulfate) 648 mg PO DAILY [facility] Last Admin: 02/25/19 07:21 Dose: 648 mg Finasteride (Proscar) 5 mg PO DAILY [facility] Last Admin: 02/25/19 09:59 Dose: 5 mg Guaifenesin (Organ-I Nr) 600 mg PO BEDTIME [facility] Last Admin: 02/24/19 19:39 Dose: 600 mg Heparin Sodium (Porcine) (Heparin Lock Flush 100 Units/Ml) 500 units FLUSH DAILY [facility] Last Admin: 02/25/19 09:54 Dose: 500 units Sodium Chloride (Normal Saline) 1,000 mls @ 75 mls/hr IV ASDIRECTED [facility] Stop: 02/21/19 08:19 Insulin Human Lispro (Humalog) 5 unit SUBCUT ONETIME ONE Stop: 02/20/19 23:22 Last Admin: 02/20/19 23:35 Dose: 5 units Insulin Human Lispro (Humalog) 5 unit SUBCUT ONETIME ONE Stop: 02/21/19 01:34 Last Admin: 02/21/19 01:54 Dose: 5 units Insulin Human Regular (Humulin R) 5 unit SUBCUT ONETIME ONE Stop: 02/20/19 23:07 Last Admin: 02/20/19 23:36 Dose: Not Given Levetiracetam (Keppra) 1,000 mg PO BID [facility] Last Admin: 02/25/19 07:21 Dose: 1,000 mg Lorazepam (Ativan) 1 mg PO Q6H PRN PRN Reason: Anxiety Last Admin: 02/24/19 14:50 Dose: 1 mg Metformin HCl (Glucophage) 500 mg PO BID [facility] Last Admin: 02/25/19 07:20 Dose: 500 mg Multivitamins/Minerals/Vitamin C (Tab-A-Dawn) 1 tab PO DAILY [facility] Last Admin: 02/25/19 07:20 Dose: 1 tab Non-Formulary Medication ([place]-3/Dha/Epa/Fish Oil [Fish Oil 1,000 Mg Softgel]) 1,000 mg PO DAILY [facility] Last Admin: 02/20/19 10:51 Dose: Not Given Non-Formulary Medication (Ubidecarenone [Co Q-10]) 200 mg PO DAILY [facility] Last Admin: 02/20/19 10:51 Dose: Not Given Ondansetron HCl (Zofran) 4 mg IV Q6H PRN PRN Reason: Nausea/Vomiting Ondansetron HCl (Zofran Odt) 4 mg PO Q8H PRN PRN Reason: Nausea Last Admin: 02/25/19 09:53 Dose: 4 mg Pantoprazole Sodium (Protonix) 40 mg PO DAILY [facility] Last Admin: 02/25/19 07:21 Dose: 40 mg Pseudoephedrine HCl (Sudogest) 60 mg PO BEDTIME [facility] Last Admin: 02/24/19 19:39 Dose: 60 mg Simvastatin (Zocor) 40 mg PO BEDTIME [facility] Last Admin: 02/24/19 19:39 Dose: 40 mg Sodium Chloride (Saline Flush) 10 ml FLUSH ASDIRECTED PRN PRN Reason: Keep Vein Open Tamsulosin HCl (Flomax) 0.8 mg PO DAILY [facility] Last Admin: 02/25/19 07:20 Dose: 0.8 mg Temazepam (Restoril) 15 mg PO BEDTIME PRN PRN Reason: Sleep - Exam General: Reports: Oriented, Other (sleeping much of the time. Does arouse with stimuli, answers questions appropriately) HEENT: Reports: Mucous Membr. Moist/[place] Neck: Reports: Supple Lungs: Reports: Clear to Auscultation, Normal Respiratory Effort Cardiovascular: Reports: Regular Rate, Regular Rhythm GI/Abdominal Exam: Normal Bowel Sounds, Soft, Non-Tender Extremities: Normal Inspection, No Pedal Edema Skin: Reports: Warm, Dry Neurological: Reports: No New Focal Deficit *Q Meaningful Use (DIS) - VTE *Q VTE Anticoagulation Contraindications: Comp/Late Effect of Care
== END 2019-02-25 10:20 | DRG 54 ==
LOC: CC.ED 06:32 → CC.MS 08:22 → UNDOADMIN 08:22 → CC.MS 08:36
PROVIDERS: ADMIT Nurse Practitioner Family; ATTEND Family Medicine
DX: C79.31 Secondary malignant neoplasm of brain (principal); R51 Headache; I61.1 Nontraumatic intracerebral hemorrhage in hemisphere, cortical; C34.90 Malignant neoplasm of unspecified part of unspecified bronchus or lung; C78.00 Secondary malignant neoplasm of unspecified lung; R62.7 Adult failure to thrive; R56.9 Unspecified convulsions; Z51.5 Encounter for palliative care; E78.00 Pure hypercholesterolemia, unspecified; R32 Unspecified urinary incontinence; I10 Essential (primary) hypertension; E11.9 Type 2 diabetes mellitus without complications; Z79.84 Long term (current) use of oral hypoglycemic drugs; Z79.899 Other long term (current) drug therapy; Z85.048 Personal history of other malignant neoplasm of rectum, rectosigmoid junction, and anus
CPT/HCPCS: 36415; 70450; 80048; 81001; 82962; 85025; 86140; 99285-25; A9270-GY; J1642; J8540